=== PATIENT | female | born 1970 | race Caucasian/White ===

== ENCOUNTER 2016-03-27 18:29 | Emergency (ER) | payer OTHER ==
[2016-03-27 18:51] VITALS: BP 133/90
[2016-03-27] MEDS ORDERED: Ketorolac INJ* 30 MG/ML 1 ML VIAL IM ONE (19:54)
--- NOTE | 2016-03-27 20:00 | ED ---
Lower Extremity - HPI Summary HPI Summary: The patient is a 46 year old female that presents to the ED with complaint of right knee and ankle pain after tripping on toy left on floor by child falling forward onto right knee and twisting right ankle at 5 PM tonight. Complains of severe pain worse with movement of RLE and weight bearing. Denies head injury, neck or back pain, chest pain, shortness of breath, abdominal pain, nausea, vomiting, gross hematuria, paresthesias. History of HTN, HLP, DM, COPD, asthma, Breast CA, migraines, seizures. S/P appendectomy. FH CAD, HTN. SH: Current smoker and occasional ETOH. No IVDU. Lives with family. Indicates need to drive home. Declines narcotic analgesic. - History of Current Complaint Chief Complaint: EDExtremityLower Stated Complaint: FALL/RIGHT KNEE INJURY Time Seen by Provider: 03/27/16 19:05 Hx Last Menstrual Period: 12/30/14 Pain Intensity: 8 - Allergies/Home Medications Allergies/Adverse Reactions: Allergies Allergy/AdvReac Type Severity Reaction Status Date / Time Levofloxacin [From Levaquin] Allergy Severe Anaphylatic Verified 07/24/15 16:39 Shock Moxifloxacin [From Avelox] Allergy Intermediate See Comment Verified 07/24/15 16 :39 Quinolones Allergy Anaphylatic Verified 07/24/15 16:39 Shock PMH/Surg Hx/FS Hx/Imm Hx Endocrine/Hematology History: Reports: Hx Diabetes - pt does not take medication and does not know what type she has Denies: Hx Thyroid Disease Cardiovascular History: Reports: Hx Hypercholesterolemia, Hx Hypertension Denies: Hx Congestive Heart Failure, Hx Pacemaker/ICD Respiratory History: Reports: Hx Asthma, Hx Chronic Obstructive Pulmonary Disease (COPD) GI History: Reports: Other GI Disorders - DX WITH ENDOMETRIOSIS Denies: Hx Ulcer History: Reports: Hx Kidney Stones Denies: Hx Renal Disease Musculoskeletal History: Reports: Other Musculoskeletal History - DEGENERATIVE DISK DISEASE Sensory History: Reports: Hx Contacts or Glasses Denies: Hx Hearing Aid Opthamlomology History: Reports: Hx Contacts or Glasses Neurological History: Reports: Hx Migraine, Hx Seizures - topamax ....no seizures in years, Other Neuro Impairments/Disorders - MIGRAINES, EPILEPSY Psychiatric History: Reports: Hx Anxiety, Hx Depression Denies: Hx Panic Disorder - Surgical History Surgery Procedure, Year, and Place: APPENDIX IN 2000; (1) C-SECT IN 2005. BILAT BREAST BIOPSIES 2005,2006 Infectious Disease History: No Infectious Disease History: Denies: Hx Clostridium Difficile, Hx Hepatitis, Hx Human Immunodeficiency Virus (HIV), Hx of Known/Suspected MRSA, Hx Shingles, Hx Tuberculosis, Hx Known/ Suspected VRE, Hx Known/Suspected VRSA, History Other Infectious Disease, Traveled Outside the [place] in Last 30 Days - Family History Known Family History: Positive: Cardiac Disease, Hypertension - Social History Alcohol Use: Occasionally Substance Use Type: Reports: None Hx Tobacco Use: Yes Smoking Status (MU): Light Every Day Tobacco Smoker Type: Cigarettes Amount Used/How Often: 1-1 1/2 ppd Length of Time of Smoking/Using Tobacco: 25 yrs Have You Smoked in the Last Year: Yes Review of Systems Constitutional: Negative Cardiovascular: Negative Respiratory: Negative Gastrointestinal: Negative Genitourinary: Negative Positive: Arthralgia, Decreased ROM, Edema Skin: Negative Neurological: Negative All Other Systems Reviewed And Are Negative: Yes Physical Exam Triage Information Reviewed: Yes Vital Signs On Initial Exam: Initial Vitals Temp Pulse Resp BP Pulse Ox 99.7 F 102 17 133/90 97 03/27/16 18:47 03/27/16 18:47 03/27/16 18:47 03/27/16 18:47 03/27/16 18:47 Vital Signs Reviewed: Yes Appearance: Positive: Well-Appearing, Well-Nourished, Pain Distress - moderate pain Skin: Positive: Warm, Skin Color Reflects Adequate Perfusion, Dry Head/Face: Positive: Normal Head/Face Inspection Eyes: Positive: Other: - Anicteric ENT: Positive: Hearing grossly normal Neck: Positive: Supple Respiratory/Lung Sounds: Positive: Other - Normal respirations Cardiovascular: Positive: RRR - DP pulse 2+. Negative: Leg Edema Left, Leg Edema Right Musculoskeletal: Positive: Limited @ - Decreased AROM right knee; decreased right ankle eversion, Pain @ - moderate tenderness right patella with 1+ edema and faint ecchymosis; mild tenderness right lateral malleolus 1+ edema without ecchymosis.. Negative: Edema Left, Edema Right Neurological: Positive: Normal, Sensory/Motor Intact, Reflexes Intact - Achilles 2+, NV Bundle Intact Distally Psychiatric: Positive: Normal AVPU Assessment: Alert Diagnostics - Vital Signs Vital Signs Temp Pulse Resp BP Pulse Ox 03/27/16 18:47 99.7 F 102 17 133/90 97 - Laboratory Lab Statement: Any lab studies that have been ordered have been reviewed, and results considered in the medical decision making process. Lower Extremity Course/Dx - Course Assessment/Plan: Xray knee without fracture. Xray ankle with fragmentation likely old fracture vs ossicle. Clinical impression of knee contusion and ankle sprain. Declines narcotic. Advised to continue to naproxen, RICE. Places in knee moses wrap and ankle splint. Given referral to Orthopedist. - Diagnoses Provider Diagnoses: Knee contusion, Ankle sprain Discharge - Discharge Plan Condition: Stable Disposition: HOME Patient Education Materials: Ankle Sprain (ED), Contusion in Adults (ED) Referrals: Mary Aguilar MD [Primary Care Provider] - Tony Mas MD [Medical Doctor] -
--- NOTE | 2016-03-27 20:59 | RAD ---
Indication: Right patellar tenderness. 4 views of the right knee demonstrates no fracture or dislocation. No other bone or joint abnormality is identified. IMPRESSION: No fracture of the right knee is noted.
--- NOTE | 2016-03-27 21:00 | RAD ---
Indication: Right ankle pain. 3 views of the right ankle demonstrates old ununited fracture of the distal fibula or an accessory ossicle. No recent fracture is noted. Soft tissue swelling is noted laterally. IMPRESSION: Fragmentation of the distal fibula likely due to ununited old fracture or accessory ossicle.
== END 2016-03-27 21:55 | disposition home or self-care (01) ==
LOC: ED 18:29
DX: S80.01XA Contusion of right knee, initial encounter (principal); S93.491A Sprain of other ligament of right ankle, initial encounter; M25.571 Pain in right ankle and joints of right foot; M25.561 Pain in right knee; F17.210 Nicotine dependence, cigarettes, uncomplicated; W18.09XA Striking against other object with subsequent fall, initial encounter; Y93.9 Activity, unspecified; Y92.9 Unspecified place or not applicable; Y99.9 Unspecified external cause status; Z86.79 Personal history of other diseases of the circulatory system
CPT/HCPCS: 96372; 99282; J1885

== ENCOUNTER 2016-09-05 10:01 | Emergency (ER) | payer OTHER ==
[2016-09-05] MEDS ORDERED: Amoxicillin/Clavulanate TAB* 875 MG PO ONE (11:09)
[2016-09-05] MEDS ORDERED: Ibuprofen TAB* 800 MG PO ONE (11:09)
--- NOTE | 2016-09-05 11:11 | ED ---
Upper Extremity Pain - HPI Summary HPI Summary: Pt here w/ Rt index finger cat bite last night. Cat was stuck in dresser drawer and pt attempted to remove cat - cat bit finger and held on for a minute. Pt reports bleeding at that time. Sore, swollen and stiff today. Pt is UTD w/ imms as is her cat. Denies fever, chills, N/V/D. She tried acetaminophen w/o much relief prior to arrival. Concerned about infection. Has already complete paperwork for animal bite. Denies numbness, tingling, weakness. - History of Current Complaint Chief Complaint: EDAnimalBite Stated Complaint: CAT BITE Time Seen by Provider: 09/05/16 10:56 Hx Obtained From: Patient Hx Last Menstrual Period: 12/30/14 - Allergies/Home Medications Allergies/Adverse Reactions: Allergies Allergy/AdvReac Type Severity Reaction Status Date / Time Levofloxacin [From Levaquin] Allergy Severe Anaphylatic Verified 07/13/16 11:29 Shock Amoxicillin [From Augmentin] Allergy Intermediate Hives Verified 09/05/16 11:10 Clavulanic Acid Allergy Intermediate Hives Verified 09/05/16 11:10 [From Augmentin] Moxifloxacin [From Avelox] Allergy Intermediate See Comment Verified 07/13/16 11 :29 Quinolones Allergy Anaphylatic Verified 07/13/16 11:29 Shock PMH/Surg Hx/FS Hx/Imm Hx Previously Healthy: Yes Endocrine/Hematology History: Reports: Hx Diabetes - pt does not take medication and does not know what type she has Denies: Hx Thyroid Disease, Autoimmune Disease Cardiovascular History: Reports: Hx Hypercholesterolemia Denies: Hx Congestive Heart Failure, Hx Hypertension, Hx Pacemaker/ICD Respiratory History: Reports: Hx Asthma, Hx Chronic Obstructive Pulmonary Disease (COPD) GI History: Reports: Other GI Disorders - DX WITH ENDOMETRIOSIS Denies: Hx Ulcer History: Reports: Hx Kidney Stones Denies: Hx Renal Disease Musculoskeletal History: Reports: Other Musculoskeletal History - DEGENERATIVE DISc DISEASE; tears in Lt knee Sensory History: Reports: Hx Contacts or Glasses Denies: Hx Hearing Aid Opthamlomology History: Reports: Hx Contacts or Glasses Neurological History: Reports: Hx Migraine, Hx Seizures - topamax ....no seizures in years, Other Neuro Impairments/Disorders - MIGRAINES, EPILEPSY Psychiatric History: Reports: Hx Anxiety, Hx Depression Denies: Hx Panic Disorder - Cancer History Cancer Type, Location and Year: PRE CANCEROUS CELLS BILATERAL BREAST REMOVED - Surgical History Surgery Procedure, Year, and Place: APPENDIX IN 2000; (1) C-SECT IN 2005. BILAT BREAST BIOPSIES 2005,2006 Infectious Disease History: No Infectious Disease History: Denies: Hx Clostridium Difficile, Hx Hepatitis, Hx Human Immunodeficiency Virus (HIV), Hx of Known/Suspected MRSA, Hx Shingles, Hx Tuberculosis, Hx Known/ Suspected VRE, Hx Known/Suspected VRSA, History Other Infectious Disease, Traveled Outside the [place] in Last 30 Days - Family History Known Family History: Positive: Cardiac Disease, Hypertension - Social History Lives: With Family Alcohol Use: None Hx Substance Use: No Substance Use Type: Reports: None Hx Tobacco Use: Yes Smoking Status (MU): Current Every Day Smoker Type: Cigarettes Amount Used/How Often: 1-1 1/2 ppd Length of Time of Smoking/Using Tobacco: 25 yrs Have You Smoked in the Last Year: Yes Review of Systems Constitutional: Negative Negative: Fever, Chills Negative: Chest Pain Negative: Shortness Of Breath Negative: Vomiting, Nausea Positive: no symptoms reported Musculoskeletal: Other - see HPI Skin: Other - see HPI Neurological: Negative Psychological: Normal All Other Systems Reviewed And Are Negative: Yes Physical Exam Triage Information Reviewed: Yes Vital Signs On Initial Exam: Initial Vitals Temp Pulse Resp BP Pulse Ox 97.1 F 74 20 133/95 98 09/05/16 10:04 09/05/16 10:04 09/05/16 10:04 09/05/16 10:04 09/05/16 10:04 Vital Signs Reviewed: Yes Appearance: Positive: Well-Appearing, No Pain Distress, Well-Nourished Skin: Positive: Warm, Dry - Rt index finger w/ mild erythema, edema compared to Lt index finger - limited FROM (flexion) d/t pt reporting stiffness; multiple puncture wounds to Rt index - closed/scabbed - no drainage, no streaking Head/Face: Positive: Normal Head/Face Inspection Eyes: Positive: EOMI, Conjunctiva Clear ENT: Positive: Hearing grossly normal Respiratory/Lung Sounds: Positive: Breath Sounds Present Cardiovascular: Positive: Pulses are Symmetrical in both Upper and Lower Extremities Musculoskeletal: Positive: Pain @ - see SKIN above - Rt raiza finger TTP Neurological: Positive: Normal, Sensory/Motor Intact, Alert, Oriented to Person Place, Time, CN Intact II-III Psychiatric: Positive: Normal Diagnostics - Vital Signs Vital Signs Temp Pulse Resp BP Pulse Ox 09/05/16 10:07 97.7 F 77 20 133/95 98 09/05/16 10:04 97.1 F 74 20 133/95 98 - Laboratory Lab Statement: Any lab studies that have been ordered have been reviewed, and results considered in the medical decision making process. Course/Dx - Course Course Of Treatment: Cat bite to Rt index finger from last night. Wounds have closed despite warm soapy soak today - unable to reopen wounds for irrigation. Advised daily soaks, anbx, NSAID's and close f/u w/ PCP. Pt is allergic to augmentin so alternative was chosen for her. Reviewed danger s/sx of when to return to ED. - Diagnoses Provider Diagnoses: Cat bite of index finger Discharge - Discharge Plan Condition: Stable Disposition: HOME Prescriptions: Metronidazole [Flagyl 500 MG TAB] 500 mg PO TID #30 tab Sulfamethox/Trimethoprim DS* [Bactrim DS 800/160 TAB*] 1 tab PO BID #20 tab Patient Education Materials: Animal Bite (ED) Referrals: Mary Aguilar MD [Primary Care Provider] - Additional Instructions: Soak finger 3-5 x day in warm epsom salt water alternating with soap soaks Rest, elevate - may use warm compress or ice for pain, swelling Continue acetaminophen/ibuprofen for pain Complete antibiotics - followup with PCP later this week for recheck *if you develop fever, chills, streaking into hand, purulent drainage with worsening of swelling/pain, seek medical attention sooner than later
[2016-09-05] MEDS ORDERED: metroNIDAZOLE TAB* 250 MG PO ONE (11:14)
[2016-09-05] MEDS ORDERED: Sulfamethox/Trimethoprim DS 800/160* TAB PO ONE (11:14)
[2016-09-05 12:23] VITALS: BP 130/87
== END 2016-09-05 12:21 | disposition home or self-care (01) ==
LOC: ED 10:01
DX: S61.258A Open bite of other finger without damage to nail, initial encounter (principal); W55.01XA Bitten by cat, initial encounter; Y93.9 Activity, unspecified
CPT/HCPCS: 99283; A9270-GY

== ENCOUNTER 2016-09-07 21:00 | Emergency (ER) | payer OTHER ==
--- NOTE | 2016-09-07 22:05 | RAD ---
Indication: Left knee injury and fall. 4 views of left knee demonstrates no fracture or dislocation. No joint effusion is identified. IMPRESSION: No fracture of the left knee is noted.
[2016-09-07] MEDS ORDERED: Ketorolac INJ* 60 MG/2 ML VIAL IM ONE (22:16)
--- NOTE | 2016-09-07 22:23 | ED ---
Lower Extremity - HPI Summary HPI Summary: Patient has a known left knee meniscus tear and partial ACL tear that occurred 3 months ago. She has been attending PT and was making progress until today when her knee suddenly became swollen and she was unable to bear weight on the leg. She has swelling around the knee cap without calf pain, redness or warmth. - History of Current Complaint Chief Complaint: EDExtremityLower Stated Complaint: LEFT KNEE PAIN Time Seen by Provider: 09/07/16 21:04 Hx Obtained From: Patient Hx Last Menstrual Period: 12/30/14 Mechanism Of Injury: Unknown Onset of Pain: Immediate Onset/Duration: Hours Severity Initially: Severe Severity Currently: Severe Timing: Constant Location: Is Discrete @ - left knee Character Of Pain: Sharp, Aching, Stiffness Associated Signs And Symptoms: Positive: Swelling, Knee Pain Aggravating Factor(s): Standing, Movement Alleviating Factor(s): Nothing Able to Bear Weight: No - Allergies/Home Medications Allergies/Adverse Reactions: Allergies Allergy/AdvReac Type Severity Reaction Status Date / Time Levofloxacin [From Levaquin] Allergy Severe Anaphylatic Verified 07/13/16 11:29 Shock Amoxicillin [From Augmentin] Allergy Intermediate Hives Verified 09/05/16 11:10 Clavulanic Acid Allergy Intermediate Hives Verified 09/05/16 11:10 [From Augmentin] Moxifloxacin [From Avelox] Allergy Intermediate See Comment Verified 07/13/16 11 :29 Quinolones Allergy Anaphylatic Verified 07/13/16 11:29 Shock PMH/Surg Hx/FS Hx/Imm Hx Endocrine/Hematology History: Reports: Hx Diabetes - pt does not take medication and does not know what type she has Denies: Hx Thyroid Disease Cardiovascular History: Reports: Hx Hypercholesterolemia Denies: Hx Congestive Heart Failure, Hx Hypertension, Hx Pacemaker/ICD Respiratory History: Reports: Hx Asthma, Hx Chronic Obstructive Pulmonary Disease (COPD) GI History: Reports: Other GI Disorders - DX WITH ENDOMETRIOSIS Denies: Hx Ulcer History: Reports: Hx Kidney Stones Denies: Hx Renal Disease Musculoskeletal History: Reports: Other Musculoskeletal History - DDD; left knee partial ACL tear; left knee meniscus tear Sensory History: Reports: Hx Contacts or Glasses Denies: Hx Hearing Aid Opthamlomology History: Reports: Hx Contacts or Glasses Neurological History: Reports: Hx Migraine, Hx Seizures - topamax ....no seizures in years, Other Neuro Impairments/Disorders - MIGRAINES, EPILEPSY Psychiatric History: Reports: Hx Anxiety, Hx Depression Denies: Hx Panic Disorder - Cancer History Cancer Type, Location and Year: PRE CANCEROUS CELLS BILATERAL BREAST REMOVED - Surgical History Surgery Procedure, Year, and Place: APPENDIX IN 2000; (1) C-SECT IN 2005. BILAT BREAST BIOPSIES 2005,2006 Infectious Disease History: Denies: Hx Clostridium Difficile, Hx Hepatitis, Hx Human Immunodeficiency Virus (HIV), Hx of Known/Suspected MRSA, Hx Shingles, Hx Tuberculosis, Hx Known/ Suspected VRE, Hx Known/Suspected VRSA, History Other Infectious Disease, Traveled Outside the [place] in Last 30 Days - Family History Known Family History: Positive: Cardiac Disease, Hypertension - Social History Occupation: Unemployed Lives: With Family Alcohol Use: None Substance Use Type: Reports: None Hx Tobacco Use: Yes Smoking Status (MU): Light Every Day Tobacco Smoker Type: Cigarettes Amount Used/How Often: 1-1 1/2 ppd Length of Time of Smoking/Using Tobacco: 25 yrs Have You Smoked in the Last Year: Yes Cessation Counseling: Patient Advised to Stop Review of Systems Negative: Fever, Chills Positive: Myalgia, Decreased ROM, Edema Negative: Bruising Negative: Paresthesia, Numbness All Other Systems Reviewed And Are Negative: Yes Physical Exam Triage Information Reviewed: Yes Vital Signs Reviewed: Yes Appearance: Positive: Well-Appearing, Pain Distress, Obese Skin: Positive: Warm, Skin Color Reflects Adequate Perfusion, Dry, Soft Head/Face: Positive: Normal Head/Face Inspection Eyes: Positive: EOMI, JOSEPH, Conjunctiva Clear ENT: Positive: Hearing grossly normal Respiratory/Lung Sounds: Positive: Breath Sounds Present Cardiovascular: Positive: RRR Musculoskeletal: Positive: Limited @ - extesion to 30; flexion to 50 with pain, Pain @ - TTP med/lat joint lines; TTP popliteal fossa with +patellar apprehension, Edema Left Neurological: Positive: Sensory/Motor Intact, Alert, Oriented to Person Place, Time, NV Bundle Intact Distally, Unable to Assess Gait Psychiatric: Positive: Affect/Mood Appropriate AVPU Assessment: Alert Diagnostics - Laboratory Lab Statement: Any lab studies that have been ordered have been reviewed, and results considered in the medical decision making process. - Radiology No standard instances Xray Interpretation: No Acute Changes Radiology Interpretation Completed By: Radiologist Lower Extremity Course/Dx - Diagnoses Differential Diagnosis/HQI/PQRI: Positive: Arthritis, Bursitis, Cellulitis, Contusion, Dislocation, DVT, Fracture (Closed), Sprain, Strain Provider Diagnoses: Left knee pain Discharge - Discharge Plan Condition: Stable Disposition: HOME Patient Education Materials: Knee Pain (ED), RICE Therapy (ED) Referrals: Warren Ramos MD [Medical Doctor] - Mary Aguilar MD [Primary Care Provider] - Additional Instructions: Please call Dr. Ramos's office in the morning for a follow-up appointment to discuss treatment options for your knee. Elevate your knee above your heart, wear your Evens bandage, ice and rest your knee to allow the swelling to decrease. Use the walker to keep weight off your knee until your pain improves.
[2016-09-07 23:20] VITALS: BP 152/70
== END 2016-09-07 23:00 | disposition home or self-care (01) ==
LOC: ED 21:00
DX: M25.562 Pain in left knee (principal); R60.0 Localized edema; F17.210 Nicotine dependence, cigarettes, uncomplicated
CPT/HCPCS: 96372; 99281; J1885

== ENCOUNTER 2016-10-19 22:33 | Emergency (ER) | payer OTHER ==
[2016-10-19 22:47] VITALS: BP 141/87
[2016-10-20] MEDS ORDERED: predniSONE TAB* 20 MG PO ONE (00:43)
[2016-10-20] MEDS ORDERED: DOXYcycline CAP(*) 100 MG PO ONE (00:44)
--- NOTE | 2016-10-20 00:48 | ED ---
Respiratory - HPI Summary HPI Summary: 46F presents with productive cough, sinus congestion for 4 days. has history of COPD but is not taking medication. She denies any chest pain. She admits to SOB when she coughs. She admits to sinus congestion and post nasal drip. She admits to itchy watery eyes and ear fullness. She is on allergy medication. She has not used her nebulizer in many weeks. she is a smoker. - History of Current Complaint Chief Complaint: EDUpperRespComplaint Stated Complaint: EYE BURING, CHEST AND BACK PAIN, SORE THROAT Time Seen by Provider: 10/20/16 00:13 Pain Intensity: 0 - Allergy/Home Medications Allergies/Adverse Reactions: Allergies Allergy/AdvReac Type Severity Reaction Status Date / Time Levofloxacin [From Levaquin] Allergy Severe Anaphylatic Verified 10/20/16 00:19 Shock Amoxicillin [From Augmentin] Allergy Intermediate Hives Verified 10/20/16 00:19 Clavulanic Acid Allergy Intermediate Hives Verified 10/20/16 00:19 [From Augmentin] Moxifloxacin [From Avelox] Allergy Intermediate See Comment Verified 10/20/16 00 :19 Quinolones Allergy Anaphylatic Verified 10/20/16 00:19 Shock PMH/Surg Hx/FS Hx/Imm Hx Endocrine/Hematology History: Reports: Hx Diabetes - pt does not take medication and does not know what type she has Denies: Hx Thyroid Disease Cardiovascular History: Reports: Hx Hypercholesterolemia Denies: Hx Congestive Heart Failure, Hx Hypertension, Hx Pacemaker/ICD Respiratory History: Reports: Hx Asthma, Hx Chronic Obstructive Pulmonary Disease (COPD) GI History: Reports: Other GI Disorders - DX WITH ENDOMETRIOSIS Denies: Hx Ulcer History: Reports: Hx Kidney Stones Denies: Hx Renal Disease Musculoskeletal History: Reports: Other Musculoskeletal History - DDD; left knee partial ACL tear; left knee meniscus tear Sensory History: Reports: Hx Contacts or Glasses Denies: Hx Hearing Aid Opthamlomology History: Reports: Hx Contacts or Glasses Neurological History: Reports: Hx Migraine, Hx Seizures - topamax ....no seizures in years, Other Neuro Impairments/Disorders - MIGRAINES, EPILEPSY Psychiatric History: Reports: Hx Anxiety, Hx Depression Denies: Hx Panic Disorder - Cancer History Cancer Type, Location and Year: PRE CANCEROUS CELLS BILATERAL BREAST REMOVED - Surgical History Surgery Procedure, Year, and Place: APPENDIX IN 2000; (1) C-SECT IN 2005. BILAT BREAST BIOPSIES 2005,2006 Infectious Disease History: No Infectious Disease History: Denies: Hx Clostridium Difficile, Hx Hepatitis, Hx Human Immunodeficiency Virus (HIV), Hx of Known/Suspected MRSA, Hx Shingles, Hx Tuberculosis, Hx Known/ Suspected VRE, Hx Known/Suspected VRSA, History Other Infectious Disease, Traveled Outside the [place] in Last 30 Days - Family History Known Family History: Positive: Cardiac Disease, Hypertension - Social History Alcohol Use: None Substance Use Type: Reports: None Hx Tobacco Use: Yes Smoking Status (MU): Light Every Day Tobacco Smoker Type: Cigarettes Amount Used/How Often: 1-1 1/2 ppd Length of Time of Smoking/Using Tobacco: 25 yrs Have You Smoked in the Last Year: Yes Review of Systems Negative: Fever Positive: Nasal Discharge Negative: Chest Pain Positive: Shortness Of Breath, Cough Negative: Abdominal Pain All Other Systems Reviewed And Are Negative: Yes Physical Exam Triage Information Reviewed: Yes Vital Signs On Initial Exam: Initial Vitals Temp Pulse Resp BP Pulse Ox 98.5 F 97 16 141/87 97 10/19/16 22:45 10/19/16 22:45 10/19/16 22:45 10/19/16 22:45 10/19/16 22:45 Vital Signs Reviewed: Yes Appearance: Positive: Well-Appearing Skin: Positive: Warm, Dry Head/Face: Positive: Normal Head/Face Inspection Eyes: Positive: Normal, Conjunctiva Inflammed - allergic appearing ENT: Positive: Pharynx normal, Nasal congestion, TMs normal Respiratory/Lung Sounds: Positive: Breath Sounds Present, Decreased Breath Sounds, Other - pos egophony Cardiovascular: Positive: Normal, RRR Abdomen Description: Positive: Nontender, Soft Bowel Sounds: Positive: Present Diagnostics - Vital Signs Vital Signs Temp Pulse Resp BP Pulse Ox 10/20/16 00:17 97.2 F 97 16 141/87 97 10/19/16 22:45 98.5 F 97 16 141/87 97 - Laboratory Lab Statement: Any lab studies that have been ordered have been reviewed, and results considered in the medical decision making process. Disposition - Course Course Of Treatment: 46F presents with productive cough, sinus congestion for 4 days. has history of COPD but is not taking medication. She denies any chest pain. She admits to SOB when she coughs. She admits to sinus congestion and post nasal drip. She admits to itchy watery eyes and ear fullness. She is on allergy medication. She has not used her nebulizer in many weeks. she is a smoker. on exam conjunctive red like allergic conjunctivities told to use visine and flonase. refused xray but did hear area of consolidation with egophony. patient refused any labs only wants treatment. discussed says verenice not work for her so will use doxcycline and prednisone. told to restart copd medication and follow up with primary. patient understands and agrees with plan. - Differential Dx - Cardiopulmonary Differential Diagnoses - Cardiopulmonary: Bronchitis, Exacerbation Of COPD, Lower Resp Infection - Diagnoses Provider Diagnoses: COPD exacerbation, Pneumonia Discharge - Discharge Plan Condition: Good Disposition: HOME Prescriptions: DOXYcycline CAP(*) [DOXYcycline 100MG CAP(*)] 100 mg PO BID #13 cap Fluticasone NASAL SPRAY 50MCG* [Flonase NASAL SPRAY 50MCG*] 1 spray BOTH NARES DAILY #1 btl predniSONE TAB* [Deltasone TAB*] 40 mg PO DAILY #8 tab Patient Education Materials: COPD (Chronic Obstructive Pulmonary Disease) (ED) Referrals: Mary Aguilar MD [Primary Care Provider] - Additional Instructions: Take doxycycline twice a day for 7 days, take with food and avoid sun exposure Take steroid once a day for 4 more days starting tomorrow 5 days Use flonase one spray each nostril for nasal congestion and eye irritation Use inhaler for SOB as needed every 6 hours Take Tylenol or ibuprofen for pain every 6 hours Follow up with primary within 5 days Return to ED if develop severe shortness of breath, worsening chest pain, or any new or worsening symptoms
== END 2016-10-20 01:09 | disposition home or self-care (01) ==
LOC: ED 22:33
DX: J44.1 Chronic obstructive pulmonary disease with (acute) exacerbation (principal); R06.02 Shortness of breath; R05 Cough; F17.210 Nicotine dependence, cigarettes, uncomplicated; J18.9 Pneumonia, unspecified organism
CPT/HCPCS: 99282; A9270-GY; J7512

== ENCOUNTER 2016-11-26 13:11 | Emergency (ER) | payer OTHER ==
--- NOTE | 2016-11-26 15:21 | RAD ---
Indication: Fell and hit front of head. Loss of consciousness. Headache. Comparison: No relevant prior exams available on the [facility] PACS for comparison. Technique: Noncontrast CT vertex of skull through foramen magnum. Report: The sulci, ventricles, and basal cisterns are normal for age. Jules matter white matter differentiation is preserved without evidence for edema. No intra or extra axial hemorrhage is detected. Unremarkable orbital contents. Negative for calvarial or skull base fracture. Negative for scalp hematoma. The visualized paranasal sinuses and mastoid air spaces are clear. IMPRESSION: No evidence for traumatic brain injury or acute intracranial process. Negative exam.
--- NOTE | 2016-11-26 15:45 | ED ---
Head Injury - HPI Summary HPI Summary: Patient presents to the ED with CC of head trauma sustained 3 days ago. She states she fell, it was unwitnessed, but she states she did not have LOC. She notes to dizziness, blurry vision, double vision, nausea, fatigue and FERREIRA. FERREIRA improves with ibuprofen, worse with nothing. She states she has been sleeping a lot and feels "off." She is unaware of how she hit her head and doesn't recall the events surrounding the trauma. She is also unsure where she hit her head, and continues to state "I'm just confused." GCS 15 on arrival. FERREIRA is not worst of life, but 8/10, constant and described as a throbbing in the frontal area. - History Of Current Complaint Chief Complaint: EDHeadInjury Stated Complaint: HIT HEAD Time Seen by Provider: 11/26/16 14:39 Hx Obtained From: Patient Hx Last Menstrual Period: 12/30/14 Mechanism Of Injury: Blunt Trauma Onset/Duration: Started Days Ago Onset of Pain: Days Severity Currently: Moderate Severity Initially: Moderate Pain Intensity: 7 Pain Scale Used: 0-10 Numeric Location of Head Injury: Frontal Character: Pressure Aggravating Factor(s): Movement Alleviating Factor(s): Rest Associated Signs And Symptoms: LOC Duration Unknown, Confusion, Memory Loss, Nausea, Headache, Visual Changes - Risk Factors SDH Risk Factor: Negative - Allergies/Home Medications Allergies/Adverse Reactions: Allergies Allergy/AdvReac Type Severity Reaction Status Date / Time Levofloxacin [From Levaquin] Allergy Severe Anaphylatic Verified 10/20/16 00:19 Shock Amoxicillin [From Augmentin] Allergy Intermediate Hives Verified 10/20/16 00:19 Clavulanic Acid Allergy Intermediate Hives Verified 10/20/16 00:19 [From Augmentin] Moxifloxacin [From Avelox] Allergy Intermediate See Comment Verified 10/20/16 00 :19 Quinolones Allergy Anaphylatic Verified 10/20/16 00:19 Shock PMH/Surg Hx/FS Hx/Imm Hx Previously Healthy: Yes Endocrine/Hematology History: Reports: Hx Diabetes - pt does not take medication and does not know what type she has Denies: Hx Anticoagulant Therapy, Hx Thyroid Disease Cardiovascular History: Reports: Hx Hypercholesterolemia Denies: Hx Congestive Heart Failure, Hx Hypertension, Hx Pacemaker/ICD Respiratory History: Reports: Hx Asthma, Hx Chronic Obstructive Pulmonary Disease (COPD) GI History: Reports: Other GI Disorders - DX WITH ENDOMETRIOSIS Denies: Hx Ulcer History: Reports: Hx Kidney Stones Denies: Hx Renal Disease Musculoskeletal History: Reports: Other Musculoskeletal History - DDD; left knee partial ACL tear; left knee meniscus tear Sensory History: Reports: Hx Contacts or Glasses Denies: Hx Hearing Aid Opthamlomology History: Reports: Hx Contacts or Glasses Neurological History: Reports: Hx Migraine, Hx Seizures - topamax ....no seizures in years, Other Neuro Impairments/Disorders - MIGRAINES, EPILEPSY Psychiatric History: Reports: Hx Anxiety, Hx Depression Denies: Hx Panic Disorder - Cancer History Cancer Type, Location and Year: PRE CANCEROUS CELLS BILATERAL BREAST REMOVED - Surgical History Surgery Procedure, Year, and Place: APPENDIX IN 2000; (1) C-SECT IN 2005. BILAT BREAST BIOPSIES 2005,2006 - Immunization History Hx Pertussis Vaccination: No Immunizations Up to Date: Unable to Obtain/Confirm Infectious Disease History: No Infectious Disease History: Denies: Hx Clostridium Difficile, Hx Hepatitis, Hx Human Immunodeficiency Virus (HIV), Hx of Known/Suspected MRSA, Hx Shingles, Hx Tuberculosis, Hx Known/ Suspected VRE, Hx Known/Suspected VRSA, History Other Infectious Disease, Traveled Outside the [place] in Last 30 Days - Family History Known Family History: Positive: Cardiac Disease, Hypertension - Social History Occupation: Employed Part-time Lives: With Family Alcohol Use: None Hx Substance Use: No Substance Use Type: Reports: None Hx Tobacco Use: Yes Smoking Status (MU): Light Every Day Tobacco Smoker Type: Cigarettes Amount Used/How Often: 1-1 1/2 ppd Length of Time of Smoking/Using Tobacco: 25 yrs Have You Smoked in the Last Year: Yes Review of Systems Constitutional: Negative Negative: Fever, Chills, Fatigue Positive: Photophobia, Blurred Vision Negative: Ear Ache, Nasal Discharge Negative: Palpitations, Chest Pain Negative: Shortness Of Breath, Cough Positive: Nausea Positive: no symptoms reported, see HPI Negative: Arthralgia, Myalgia Positive: Headache. Negative: Weakness, Numbness Psychological: Normal All Other Systems Reviewed And Are Negative: Yes Physical Exam Triage Information Reviewed: Yes Vital Signs On Initial Exam: Initial Vitals Temp Pulse Resp BP Pulse Ox 98.6 F 89 15 129/86 97 11/26/16 13:12 11/26/16 13:12 11/26/16 13:12 11/26/16 13:12 11/26/16 13:12 Vital Signs Reviewed: Yes Appearance: Positive: Well-Appearing, Well-Nourished Skin: Positive: Warm, Skin Color Reflects Adequate Perfusion Head/Face: Positive: Normal Head/Face Inspection. Negative: Temporal Artery Tenderness, TMJ Tenderness, Scalp, Cephalohematoma Eyes: Positive: EOMI, JOSEPH, Conjunctiva Clear Neck: Positive: Supple, No Lymphadenopathy Respiratory/Lung Sounds: Positive: Clear to Auscultation, Breath Sounds Present Cardiovascular: Positive: Pulses are Symmetrical in both Upper and Lower Extremities Musculoskeletal: Positive: Normal, Strength/ROM Intact Neurological: Positive: Speech Normal Psychiatric: Positive: Normal AVPU Assessment: Alert - [place] Coma Scale Coma Scale Total: 15 Diagnostics - Vital Signs Vital Signs Temp Pulse Resp BP Pulse Ox 11/26/16 13:12 98.6 F 89 15 129/86 97 - Laboratory Lab Statement: Any lab studies that have been ordered have been reviewed, and results considered in the medical decision making process. Head Injury Course/Dx Course Of Treatment: GCS score >15 at arrival to ED. No suspected open or depressed skull fx, no sign of basal skull fx, no hemotympanum, raccoon eyes, Battles sign, CSF hermnan-/rhinorrhea, no emesis after injury or currently, but notes to mild nausea, no amnesia greater than 30 minutes prior to trauma, and mechanism of injury was minimal impact. Complete neuro exam completed and WNL. Normal head/face inspection with no cephalohematoma. Reflexes intact. EOMI, JOSEPH, visual acuity intact. No obvious confusion or memory loss per patient and family. MMSE OK. GCS 15. Patient oriented to person, place and date. No obvious deformity or signs of trauma. Finger to nose, heel to toe OK. Heel to holden normal. Speech normal, facial symmetry, normal gait, CN II-III intact. Patient denies LOC. ROM, strength, reflexes in upper and lower extremity intact , sensation intact. Patient discharged with return precautions and post- concussive symptoms explained to patient. Patient agrees to follow up and return if needed. - Diagnoses Differential Diagnosis/HQI/PQRI: Cerebral Contusion, Concussion With LOC, Concussion Without LOC, Contusion Provider Diagnoses: Concussion without loss of consciousness Discharge - Discharge Plan Condition: Stable Disposition: HOME Patient Education Materials: Concussion (ED) Forms: *Work Release Referrals: [facility] [Provider Group] [facility] [Provider Group] Mary Aguilar MD [Primary Care Provider] - Additional Instructions: Brain rest: This includes avoiding TV, phone use, reading, writing The more sleep and eye closure, the better Dark rooms Note for work until Sunday If symptoms continue, you may always return here or follow up with your PCP
[2016-11-26 15:49] VITALS: BP 138/93
== END 2016-11-26 15:49 | disposition home or self-care (01) ==
LOC: ED 13:11
DX: S06.0X0A Concussion without loss of consciousness, initial encounter (principal); W19.XXXA Unspecified fall, initial encounter; Y92.9 Unspecified place or not applicable; E11.9 Type 2 diabetes mellitus without complications; E78.00 Pure hypercholesterolemia, unspecified; J44.9 Chronic obstructive pulmonary disease, unspecified; F17.210 Nicotine dependence, cigarettes, uncomplicated
CPT/HCPCS: 70450; 99282

== ENCOUNTER 2017-01-05 09:21 | Emergency (ER) | payer OTHER ==
[2017-01-05 09:41] VITALS: BP 135/76
--- NOTE | 2017-01-05 10:25 | RAD ---
Indication: RIGHT foot pain and swelling following dropping object on foot several days ago. Comparison: September 11, 2016 Technique: AP, lateral, and oblique views RIGHT foot. Report: Negative for fracture or articular malalignment. 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 Small plantar fascia origin bone spur. Mild nonfocal soft tissue swelling. IMPRESSION: Negative for fracture. Mild nonfocal soft tissue swelling.
--- NOTE | 2017-01-05 11:04 | ED ---
Complex/Multi-Sys Presentation - HPI Summary HPI Summary: 46 female presents to ED with complaints of nasal congestion, sore throat, coughing and chest congestion that have been ongoing for the past month. Patient states she has been trying to take mucinex and ibuprofen however has not had any relief. Patient denies hemoptysis. States cough is some times productive. Has had some difficulty breathing due to congestion. PMHX includes COPD. She has had bronchitis/pneumonia in that past and states it comes about twice a year. Denies taking other medications. No fever/chills, chest pain, nausea, edema or vomiting. Also of complaint is her right foot. States two days ago she had something fall on it and then her daughter fell on it yesterday. Pain has increased and it has been sore to walk on and touch. States pain is on top of foot. Denies notable swelling/bruising. Is able to bear weight. Denies numbness/tingling and any other injury. - History Of Current Complaint Chief Complaint: EDUpperRespComplaint Time Seen by Provider: 01/05/17 10:28 Hx Obtained From: Patient Onset/Duration: Sudden Onset, Lasting Weeks - 1 month URI, foot x 2 days, Still Present, Worse Since Timing: Constant Severity Currently: Mild Severity Initially: Moderate Location: Pain At: - top of right foot Character: Dull - aching foot pain, Throbbing - foot pain Aggravating Factor(s): walking, palpating right foot, laying down cough Alleviating Factor(s): mucinex, iburprofen, some relief Associated Signs And Symptoms: Positive: SOB, Cough, Wheezing. Negative: Palpitations, Edema, Nausea, Vomiting, Diarrhea, Abdominal Pain, Fever Related History: Similar Episode/Diagnosed As: - bronchitis/pneumonia in the past - Allergies/Home Medications Allergies/Adverse Reactions: Allergies Allergy/AdvReac Type Severity Reaction Status Date / Time Levofloxacin [From Levaquin] Allergy Severe Anaphylatic Verified 10/20/16 00:19 Shock Amoxicillin [From Augmentin] Allergy Intermediate Hives Verified 10/20/16 00:19 Clavulanic Acid Allergy Intermediate Hives Verified 10/20/16 00:19 [From Augmentin] Moxifloxacin [From Avelox] Allergy Intermediate See Comment Verified 10/20/16 00 :19 Quinolones Allergy Anaphylatic Verified 10/20/16 00:19 Shock PMH/Surg Hx/FS Hx/Imm Hx Endocrine/Hematology History: Reports: Hx Diabetes - pt does not take medication and does not know what type she has Denies: Hx Anticoagulant Therapy, Hx Thyroid Disease Cardiovascular History: Reports: Hx Hypercholesterolemia Denies: Hx Congestive Heart Failure, Hx Hypertension, Hx Pacemaker/ICD Respiratory History: Reports: Hx Asthma, Hx Chronic Obstructive Pulmonary Disease (COPD) GI History: Reports: Other GI Disorders - DX WITH ENDOMETRIOSIS Denies: Hx Ulcer History: Reports: Hx Kidney Stones Denies: Hx Renal Disease Musculoskeletal History: Reports: Other Musculoskeletal History - DDD; left knee partial ACL tear; left knee meniscus tear Sensory History: Reports: Hx Contacts or Glasses Denies: Hx Hearing Aid Opthamlomology History: Reports: Hx Contacts or Glasses Neurological History: Reports: Hx Migraine, Hx Seizures - topamax ....no seizures in years, Other Neuro Impairments/Disorders - MIGRAINES, EPILEPSY Psychiatric History: Reports: Hx Anxiety, Hx Depression Denies: Hx Panic Disorder - Cancer History Cancer Type, Location and Year: PRE CANCEROUS CELLS BILATERAL BREAST REMOVED - Surgical History Surgery Procedure, Year, and Place: APPENDIX IN 2000; (1) C-SECT IN 2005. BILAT BREAST BIOPSIES 2005,2006 - Immunization History Immunizations Up to Date: Yes Infectious Disease History: No Infectious Disease History: Denies: Hx Clostridium Difficile, Hx Hepatitis, Hx Human Immunodeficiency Virus (HIV), Hx of Known/Suspected MRSA, Hx Shingles, Hx Tuberculosis, Hx Known/ Suspected VRE, Hx Known/Suspected VRSA, History Other Infectious Disease, Traveled Outside the [place] in Last 30 Days - Family History Known Family History: Positive: Cardiac Disease, Hypertension - Social History Alcohol Use: None Hx Substance Use: No Substance Use Type: Reports: None Hx Tobacco Use: Yes Smoking Status (MU): Light Every Day Tobacco Smoker Type: Cigarettes Amount Used/How Often: 1-1 1/2 ppd Length of Time of Smoking/Using Tobacco: 25 yrs Have You Smoked in the Last Year: Yes Review of Systems Constitutional: Negative Positive: Sore Throat, Ear Ache, Nasal Discharge Cardiovascular: Negative Positive: Shortness Of Breath, Cough Gastrointestinal: Negative Musculoskeletal: Negative Positive: Headache All Other Systems Reviewed And Are Negative: Yes Physical Exam Triage Information Reviewed: Yes Vital Signs On Initial Exam: Initial Vitals Temp Pulse Resp BP Pulse Ox 98.8 F 78 20 135/76 100 10/20/17 09:36 01/05/17 09:36 01/05/17 09:36 01/05/17 09:36 01/05/17 09:36 non hypoxic, afebrile Vital Signs Reviewed: Yes Appearance: Positive: Well-Appearing, No Pain Distress, Well-Nourished Skin: Positive: Warm, Skin Color Reflects Adequate Perfusion, Dry. Negative: Cold, Numb, Cyanosis @, Pale, Erythema @ Head/Face: Positive: Normal Head/Face Inspection Eyes: Positive: Conjunctiva Clear ENT: Positive: Normal ENT inspection, Hearing grossly normal, Pharyngeal erythema, TMs normal. Negative: TM bulging, TM dull, TM red, Tonsillar swelling , Tonsillar exudate, Trismus, Muffled/hoarse voice Dental: Negative: Percussion Tenderness @ Neck: Positive: Supple, Nontender, No Lymphadenopathy Respiratory/Lung Sounds: Positive: Clear to Auscultation, Breath Sounds Present. Negative: Decreased Breath Sounds, Rales, Rhonchi, Wheezes Cardiovascular: Positive: Normal, RRR, Pulses are Symmetrical in both Upper and Lower Extremities. Negative: Murmur, Rub Abdomen Description: Positive: Nontender, Soft Bowel Sounds: Positive: Present Musculoskeletal: Positive: Normal, Strength/ROM Intact Neurological: Positive: Normal, Sensory/Motor Intact, Alert, Oriented to Person Place, Time Diagnostics - Vital Signs Vital Signs Temp Pulse Resp BP Pulse Ox 01/05/17 09:36 98.8 F 78 20 135/76 100 - Laboratory Lab Statement: Any lab studies that have been ordered have been reviewed, and results considered in the medical decision making process. - Radiology right foot Xray Interpretation: No Acute Changes - Negative for fracture. Mild nonfocal soft tissue swelling. Radiology Interpretation Completed By: Radiologist Complex Multi-Symp Course/Dx Course Of Treatment: due to complaint of symptoms, vital signs and PE findings does not appear necessary at this time for chest xray. normal lung sounds and vitals. not highly concerned for pneumonia and treatment would not change. xray of foot obtained and negative. no further workup appears necessary at this time. moses bandage applied on foot. RICE and NSAIDs. Refrain from use. Appears to have URI/Bronchitis. will treat with doxy due to symptoms ongoing for the past month and has not had relief. Also due to COPD history, still using cigarettes. Recommended to quit, given PCP referral to obtain and discuss quitting options as it is exacerbating symptoms. Flonase, fluids, ibuprofen, inhaler and antihistamine for symptoms. Aware of worsening signs and symptoms to watch out for. No concern for other emergent etiology at this time. Patient agrees and understands plan. Follow up. - Diagnoses Differential Diagnoses/HQI/PQRI: Other - fracture, sprain, strain, contusion, URI, bronchitis, pneumonia, URI, sinusitis Provider Diagnoses: Contusion of right foot, Bronchitis Discharge - Discharge Plan Condition: Stable Disposition: HOME Prescriptions: Cetirizine* [ZyrTEC 10 MG TAB*] 10 mg PO DAILY #10 tab DOXYcycline CAP(*) [DOXYcycline 100MG CAP(*)] 100 mg PO BID #14 cap Fluticasone DISKUS 100 MCG(NF) [Flovent Diskus 100 MCG(NF)] 1 puff INH BID #1 diskus Fluticasone NASAL * [Flonase *] 2 spray BOTH NARES DAILY #1 bottle Ibuprofen TAB* [Motrin TAB* 600 MG] 600 mg PO Q8H PRN #25 tab PRN Reason: Pain Patient Education Materials: Contusion in Adults (ED), Acute Bronchitis (ED), How to Use a Nebulizer (ED), Bronchospasm (ED) Referrals: No Primary Care Phys,NOPCP [Primary Care Provider] - [facility] [[facility]] Additional Instructions: Take prescribed medications as directed. Recommend saline nasal spray sold over the counter. Drink plenty of fluids. Rest. Extra pillow when laying down. Hot showers or humidified air. Rest, elevate, ice and refrain from strenuous use of right foot until symptoms improve. Wear moses bandage ~ 7 days. Follow up with PCP. Any new or worsening symptoms please seek medical attention, as discussed.
== END 2017-01-05 11:17 | disposition home or self-care (01) ==
LOC: ED 09:21
DX: S90.31XA Contusion of right foot, initial encounter (principal); J40 Bronchitis, not specified as acute or chronic; R09.81 Nasal congestion; J02.9 Acute pharyngitis, unspecified; R05 Cough; R06.02 Shortness of breath; Z87.09 Personal history of other diseases of the respiratory system; F17.210 Nicotine dependence, cigarettes, uncomplicated; W22.8XXA Striking against or struck by other objects, initial encounter; Y93.9 Activity, unspecified; Y92.9 Unspecified place or not applicable
CPT/HCPCS: 99282

== ENCOUNTER 2017-01-10 20:08 | Emergency (ER) | payer OTHER ==
[2017-01-10 20:17] VITALS: BP 149/80
[2017-01-10] MEDS ORDERED: Albuterol/Ipratropium NEB.SOL* Albuterol 2.5 MG/Ipratropium 0.5 MG 3 ML INH ONE (21:53)
--- NOTE | 2017-01-10 23:27 | ED ---
Upper Extremity Pain - HPI Summary HPI Summary: Patient presents to the ED with CC of chest discomfort d/t coughing, chest tightness, SOB, left hand pain from a work related injury and fatigue. She states she has had a cough for several weeks which is not improving with doxycycline 100mg BID. She states she usually is given 350-500mg TID for any respiratory issues. She states she does not feel the prescription is high enough and is requesting more. She also states she has pain in her left hand with swelling after pans at work fell on top of her hand. She notes some pain in the left shoulder joint as well but has full ROM. Denies fevers, sweats and chills, but notes to some fatigue x several weeks. There is no ecchymosis to the hand, not swelling but small abrasions to the dorsum of the left dorsum of the MCP and index. She is well known to the [facility] community and often comes to the ED with pain complaints. She notes to 10/10 pain, throbbing and worst of life. She is not allowing provider to touch the hand to evaluate. - History of Current Complaint Chief Complaint: EDExtremityUpper Stated Complaint: LT HAND SWOLLEN/CONGESTION Time Seen by Provider: 01/10/17 20:21 Hx Obtained From: Patient Hx Last Menstrual Period: 12/30/14 Mechanism Of Injury: Blunt Trauma Onset/Duration: Started Hours Ago Timing: Constant Severity Initially: Severe Severity Currently: Severe Character: Sharp - hand Aggravating Factor(s): Nothing Alleviating Factor(s): Nothing Associated Signs & Symptoms: Positive: Negative Related History: Dominant Hand Left - Risk Factors Non-Orthopedic Risk Factor: Negative DVT Risk Factors: Negative Septic Arthritis Risk Factor: Negative Compartment Syndrome Risk Factors: Pain - Allergies/Home Medications Allergies/Adverse Reactions: Allergies Allergy/AdvReac Type Severity Reaction Status Date / Time Levofloxacin [From Levaquin] Allergy Severe Anaphylatic Verified 10/20/16 00:19 Shock Amoxicillin [From Augmentin] Allergy Intermediate Hives Verified 10/20/16 00:19 Clavulanic Acid Allergy Intermediate Hives Verified 10/20/16 00:19 [From Augmentin] Moxifloxacin [From Avelox] Allergy Intermediate See Comment Verified 10/20/16 00 :19 Quinolones Allergy Anaphylatic Verified 10/20/16 00:19 Shock PMH/Surg Hx/FS Hx/Imm Hx Previously Healthy: Yes Endocrine/Hematology History: Reports: Hx Diabetes - pt does not take medication and does not know what type she has Denies: Hx Anticoagulant Therapy, Hx Thyroid Disease Cardiovascular History: Reports: Hx Hypercholesterolemia Denies: Hx Congestive Heart Failure, Hx Hypertension, Hx Pacemaker/ICD Respiratory History: Reports: Hx Asthma, Hx Chronic Obstructive Pulmonary Disease (COPD) GI History: Reports: Other GI Disorders - DX WITH ENDOMETRIOSIS Denies: Hx Ulcer History: Reports: Hx Kidney Stones Denies: Hx Renal Disease Musculoskeletal History: Reports: Other Musculoskeletal History - DDD; left knee partial ACL tear; left knee meniscus tear Sensory History: Reports: Hx Contacts or Glasses Denies: Hx Hearing Aid Opthamlomology History: Reports: Hx Contacts or Glasses Neurological History: Reports: Hx Migraine, Hx Seizures - topamax ....no seizures in years, Other Neuro Impairments/Disorders - MIGRAINES, EPILEPSY Psychiatric History: Reports: Hx Anxiety, Hx Depression Denies: Hx Panic Disorder - Cancer History Cancer Type, Location and Year: PRE CANCEROUS CELLS BILATERAL BREAST REMOVED - Surgical History Surgery Procedure, Year, and Place: APPENDIX IN 2000; (1) C-SECT IN 2005. BILAT BREAST BIOPSIES 2005,2006 - Immunization History Date of Tetanus Vaccine: up to date per pt report Hx Pertussis Vaccination: No Immunizations Up to Date: Unable to Obtain/Confirm Infectious Disease History: No Infectious Disease History: Denies: Hx Clostridium Difficile, Hx Hepatitis, Hx Human Immunodeficiency Virus (HIV), Hx of Known/Suspected MRSA, Hx Shingles, Hx Tuberculosis, Hx Known/ Suspected VRE, Hx Known/Suspected VRSA, History Other Infectious Disease, Traveled Outside the [place] in Last 30 Days - Family History Known Family History: Positive: Cardiac Disease, Hypertension - Social History Occupation: Employed Part-time Lives: Alone Alcohol Use: None Hx Substance Use: No Substance Use Type: Reports: None Hx Tobacco Use: Yes Smoking Status (MU): Light Every Day Tobacco Smoker Type: Cigarettes Amount Used/How Often: 1-1 1/2 ppd Length of Time of Smoking/Using Tobacco: 25 yrs Have You Smoked in the Last Year: Yes Review of Systems - ROS Summary Review of Systems Summary: Constitutional: The patient denies fever, FERREIRA. HEENT: Head: The patient denies headaches or dizziness. Eyes: The patient denies diplopia, blurry vision, eye pain, eye discharge, photophobia. Throat: The patient denies sore throats or hoarseness. Cardiovascular: The patient denies chest pain, palpitations, syncope, night cramps, or orthostasis. Respiratory: The patient endorses cough, sputum production, dyspnea, wheezing. Gastrointestinal: The patient denies odynophagia, dysphagia, hematemesis, melenemesis. Denies abdominal pain, nausea or vomiting. Denies constipation or diarrhea. Genitourinary: Patient denies dysuria, hematuria, or pyuria. Patient denies back pain. Denies vaginal discharge, vaginal bleeding. Denies other urinary symptoms. Muscles: The patient denies myalgia, strain or weakness. Joints: The patient endorses diffuse arthralgia throughout the left hand with swelling. Constitutional: Negative Negative: Fever, Chills, Fatigue Eyes: Negative Cardiovascular: Negative Respiratory: Negative Negative: Shortness Of Breath, Cough Genitourinary: Negative Positive: no symptoms reported, see HPI Positive: Arthralgia - left hand pain Positive: Other - 3 small abrasions to the dorsum of the MCP joints on the left hand Neurological: Negative All Other Systems Reviewed And Are Negative: Yes Physical Exam - Summary Physical Exam Summary: Appearance: WDW, comfortable, pleasant, alert Skin: Soft dry skin, no lesions. Nailbeds pink with no cyanosis or clubbing. No petechia noted. Eyes: JOSEPH, EOMI, Conjunctiva pink with no redness or exudates. Mouth: Dentition without lesions. Moist mucosa Neck: Full range of motion. Palpable thyroid. Trachea at midline. No lymphadenopathy. Pulm: Chest symmetrical expansion. No deformities on posterior chest wall. Lungs clear to auscultation and percussion, without adventitious sounds. CV: No JVD. No deformities on anterior chest wall. Heart soundsRRR, Normal S1 and single S2. No S3, S4, rubs, or murmurs. Carotids 2+ bilaterally without bruits. . exam not performed Musculoskeletal: Unable to assess pain in the left hand d/t patient uncooperative. Neuro: Motor strength is 5/5 in upper and lower extremities bilaterally. A&OX3 Psych: Coherent Triage Information Reviewed: Yes Vital Signs On Initial Exam: Initial Vitals Temp Pulse Resp BP Pulse Ox 98.1 F 97 16 149/80 100 01/10/17 20:12 01/10/17 20:12 10/25/17 20:12 01/10/17 20:12 01/10/17 20:12 Vital Signs Reviewed: Yes Appearance: Positive: Well-Appearing, Well-Nourished Skin: Positive: Warm, Skin Color Reflects Adequate Perfusion, Other - 3 small abrasions to the dorsum of the MCP joints on the left hand Head/Face: Positive: Normal Head/Face Inspection Eyes: Positive: EOMI, JOSEPH, Conjunctiva Clear Neck: Positive: Supple, No Lymphadenopathy Respiratory/Lung Sounds: Positive: Clear to Auscultation, Breath Sounds Present Cardiovascular: Positive: RRR, Pulses are Symmetrical in both Upper and Lower Extremities Musculoskeletal: Positive: Normal, Strength/ROM Intact Neurological: Positive: Sensory/Motor Intact, Alert, Oriented to Person Place, Time, Speech Normal Psychiatric: Positive: Normal AVPU Assessment: Alert Diagnostics - Vital Signs Vital Signs Temp Pulse Resp BP Pulse Ox 01/10/17 20:12 98.1 F 97 16 149/80 100 - Laboratory Lab Statement: Any lab studies that have been ordered have been reviewed, and results considered in the medical decision making process. Course/Dx - Course Course Of Treatment: Patient is evaluated for left hand pain. Unable to evaluate the patients hand d/t patient non-compliance. I have agreed to order an xray of the hand to evaluate for fractures. Also, ordered a chest xray d/t SOB and history of PNA stating this feels the same. 3 small abrasions to the dorsum of the MCP joints on the left hand. Xray read by Dr. Medrano and myself in the ED as negative. Chest xray ready by Dr. Medrano and myself as negative. Patient is given these results to where she becomes very upset. She states she would like to see the image. Provider gave an enlarged version of the xray image to the patient and she remains very upset. I have asked her what I could do to help her and she states she would like a second opinion. I have encouraged her to do so and communicated to the patient that another physician ( a radiologist) will read the xray as well and will call with any abnormal results. I have asked her to follow up with [facility] ortho to which she refuses, stating she does not like them. I have also offered to wrap the hand in moses wrap and she is refusing. I have then asked her what else I can do to help her, stating she seems very upset. I have again stated this is very "good news" and I wish I had a better reason for her pain and she then states she would like me to leave and be discharged, stating she did not like that comment. Again, I asked how I can help and what I can do for her and she begins to raise her voice and becomes very agitated. I have called security as a backup and patient is discharged with no follow ups d/t refusal. - Diagnoses Differential Diagnosis/HQI/PQRI: Positive: Contusion Provider Diagnoses: Hand contusion Discharge - Discharge Plan Condition: Stable Disposition: HOME Patient Education Materials: Contusion in Adults (ED) Referrals: No Primary Care Phys,NOPCP [Primary Care Provider] - Additional Instructions: Please get a second opinion on the hand. We will also have another physician look over the xray and call for any abnormal results. I am sorry I cannot give you better news or a reason for your pain and am sorry for any pain you are having Please take ibuprofen 600mg three times daily Use ice to the area with a towel
--- NOTE | 2017-01-11 07:33 | RAD ---
INDICATION: Pain at the first second and third digits COMPARISON: None. TECHNIQUE: 4 views of the left hand were obtained. FINDINGS: The adequately corticated bones are in normal alignment. No significant focal osseous abnormality or fracture is seen. Joint spaces appear maintained. IMPRESSION: Normal left hand radiograph. If the patient's symptoms persist, follow-up imaging is recommended.
--- NOTE | 2017-01-11 07:34 | RAD ---
INDICATION: Chest pain and cough x2 weeks COMPARISON: Chest x-ray dated June 22, 2016 TECHNIQUE: PA and lateral views of the chest were obtained. FINDINGS: The heart and mediastinum are normal in size and contour. The lungs are grossly clear. There is no evidence of large pleural effusion. Visualized bones are normal for the patient's age. There is no radiographic evidence of free air beneath the diaphragm IMPRESSION: No radiographic evidence of acute cardiopulmonary disease.
== END 2017-01-10 23:32 | disposition home or self-care (01) ==
LOC: ED 20:08
DX: S60.222A Contusion of left hand, initial encounter (principal); R07.9 Chest pain, unspecified; E11.9 Type 2 diabetes mellitus without complications; R06.02 Shortness of breath; R05 Cough; Z87.09 Personal history of other diseases of the respiratory system; F17.210 Nicotine dependence, cigarettes, uncomplicated; W22.8XXA Striking against or struck by other objects, initial encounter; Y93.9 Activity, unspecified; Y92.9 Unspecified place or not applicable
CPT/HCPCS: 71020; 99282; A9270-GY

== ENCOUNTER 2017-05-03 01:00 | Emergency (ER) | payer OTHER ==
[2017-05-03] MEDS ORDERED: NS 0.9% 1000 ML* 1,000 ML IV ONE (01:52)
[2017-05-03] MEDS ORDERED: Ibuprofen TAB* 600 MG PO ONE (01:52)
[2017-05-03 02:54] LABS: ABS Basophils 0.1 10^3/ul (0-0.2); ABS Eosinophils 0.3 10^3/ul (0-0.6); ABS Lymphocytes 2.9 10^3/ul (1.0-4.8); ABS Monocytes 0.8 10^3/ul (0-0.8); ABS Neutrophils 6.3 10^3/ul (1.5-7.7); ABS Nucleated RBC 0 10^3/ul; Eosinophil % 2.5 % (0-6); Hematocrit 46 % (35-47); Hemoglobin 15.3 g/dl (12.0-16.0); Lymphocyte % 28.2 % (25-47); Mean Corpuscular HGB Conc 33 g/dl (31-36); Mean Corpuscular Hemoglobin 32 pg (27-31); Mean Corpuscular Volume 96 fL (80-97); Mean Platelet Volume 9 um3 (7.4-10.4); Nucleated Red Blood Cells % 0.2; Platelet Count 243 10^3/ul (150-450); Red Cell Distribution Width 15 % (10.5-15); White Blood Count 10.5 10^3/ul (3.5-10.8)
[2017-05-03 03:06] LABS: EGFR Non-African American 94.8 (>60)
[2017-05-03 03:09] LABS: INR 0.83 (0.77-1.02)
[2017-05-03] MEDS ORDERED: Iodixanol* (CONTRAST) 320 MG/ML 100 ML SDV IV ONE (04:04)
[2017-05-03 06:41] VITALS: BP 129/84
--- NOTE | 2017-05-03 08:21 | RAD ---
HISTORY: Left chest pain COMPARISONS: March 06, 2013 TECHNIQUE: Multiple contiguous axial CT scans of the chest were obtained after the administration of nonionic intravenous contrast, timed to the pulmonary arterial phase of contrast enhancement.. Coronal and sagittal multiplanar reformations are also submitted for review. FINDINGS: Evaluation is limited by patient breathing motion artifact. NECK AND THYROID: The lower neck and thyroid are unremarkable. CHEST WALL: There is no lower cervical, axillary, or supraclavicular lymphadenopathy by size criteria. HEART AND PERICARDIUM: The heart is unremarkable. AORTA AND PULMONARY VASCULATURE: There is no pulmonary arterial filling defect to suggest pulmonary embolism. There is no linear filling defect within the aorta to suggest aortic dissection. MEDIASTINUM: There is no mediastinal lymphadenopathy by size criteria. STEWART: There is no hilar lymphadenopathy by size criteria. AIRWAY AND ESOPHAGUS: The airway is unremarkable, without endobronchial filling defect. The esophagus is grossly normal. LUNG PARENCHYMA: There is a 0.4 cm nodule of the left middle lobe. This can be identified on the previous examination and is stable consistent with a benign nodule. PLEURA: No pleural abnormalities are noted. UPPER ABDOMEN: The upper abdomen is unremarkable. BONES AND SOFT TISSUES: Mild degenerative changes are noted OTHER: None. IMPRESSION: NO PULMONARY ARTERIAL FILLING DEFECT TO SUGGEST PULMONARY EMBOLISM.
--- NOTE | 2017-05-03 08:25 | ED ---
Tapan Arnett Nilda, scribed for Blu Maldonaod MD on 05/03/17 at 0155 . HPI Chest Pain - HPI Summary HPI Summary: This patient is a 47 year old F presenting to [facility] with a chief complaint of constant left sided CP radiating to left shoulder for the past few days. The patient rates the pain 10/10 in severity. Symptoms aggravated by palpation and alleviated by nothing. Patient reports recent Dx of PNA and has been on abx with no relief. NKDA. - History of Current Complaint Chief Complaint: EDChestPainROMI Time Seen by Provider: 05/03/17 01:45 Hx Obtained From: Patient Hx Last Menstrual Period: 12/30/14 Onset/Duration: Started Days Ago, Still Present Timing: Constant Current Severity: Severe Pain Intensity: 10 Pain Scale Used: 0-10 Numeric Chest Pain Location: Left Lateral Chest Pain Radiates: Yes Chest Pain Radiates To:: Shoulder - left Aggravating Factor(s): Other: - palpation Alleviating Factor(s): Nothing - Allergy/Home Medications Allergies/Adverse Reactions: Allergies Allergy/AdvReac Type Severity Reaction Status Date / Time MS Levofloxacin Allergy Severe Anaphylatic Verified 10/20/16 00:19 [From Levaquin] Shock MS Amoxicillin Allergy Intermediate Hives Verified 10/20/16 00:19 [From Augmentin] MS Clavulanic Acid Allergy Intermediate Hives Verified 10/20/16 00:19 [From Augmentin] MS Moxifloxacin [From Avelox] Allergy Intermediate See Comment Verified 00:19 MS Quinolones [Quinolones] Allergy Anaphylatic Verified 10/20/16 00:19 Shock PMH/Surg Hx/FS Hx/Imm Hx Endocrine/Hematology History: Reports: Hx Diabetes - pt does not take medication and does not know what type she has Denies: Hx Anticoagulant Therapy, Hx Thyroid Disease Cardiovascular History: Reports: Hx Coronary Artery Disease, Hx Hypercholesterolemia Denies: Hx Congestive Heart Failure, Hx Hypertension, Hx Pacemaker/ICD Respiratory History: Reports: Hx Asthma, Hx Chronic Obstructive Pulmonary Disease (COPD) GI History: Reports: Other GI Disorders - DX WITH ENDOMETRIOSIS Denies: Hx Ulcer History: Reports: Hx Kidney Stones Denies: Hx Renal Disease Musculoskeletal History: Reports: Other Musculoskeletal History - DDD; left knee partial ACL tear; left knee meniscus tear Sensory History: Reports: Hx Contacts or Glasses Denies: Hx Hearing Aid Opthamlomology History: Reports: Hx Contacts or Glasses Neurological History: Reports: Hx Migraine, Hx Seizures - topamax ....no seizures in years, Other Neuro Impairments/Disorders - MIGRAINES, EPILEPSY Psychiatric History: Reports: Hx Anxiety, Hx Depression Denies: Hx Panic Disorder - Cancer History Cancer Type, Location and Year: PRE CANCEROUS CELLS BILATERAL BREAST REMOVED - Surgical History Surgery Procedure, Year, and Place: APPENDIX IN 2000; (1) C-SECT IN 2005. BILAT BREAST BIOPSIES 2005,2006 - Immunization History Date of Tetanus Vaccine: up to date per pt report Infectious Disease History: No Infectious Disease History: Denies: Hx Clostridium Difficile, Hx Hepatitis, Hx Human Immunodeficiency Virus (HIV), Hx of Known/Suspected MRSA, Hx Shingles, Hx Tuberculosis, Hx Known/ Suspected VRE, Hx Known/Suspected VRSA, History Other Infectious Disease, Traveled Outside the [place] in Last 30 Days - Family History Known Family History: Positive: Cardiac Disease, Hypertension - Social History Alcohol Use: Rare Hx Substance Use: No Substance Use Type: Reports: None Hx Tobacco Use: Yes Smoking Status (MU): Light Every Day Tobacco Smoker Type: Cigarettes Amount Used/How Often: 1-1 1/2 ppd Length of Time of Smoking/Using Tobacco: 25 yrs Have You Smoked in the Last Year: Yes Review of Systems Positive: Chest Pain Positive: Other - left shoulder pain All Other Systems Reviewed And Are Negative: Yes Physical Exam - Summary Physical Exam Summary: General: well-appearing, mild pain distress Skin: warm, color reflects adequate perfusion, dry Head: normal Eyes: EOMI, JOSEPH ENT: normal Neck: supple, nontender Respiratory: CTA, breath sounds present, coughing Cardiovascular: RRR Abdomen: soft, nontender Bowel: present Musculoskeletal: strength/ROM intact, trace pedal edema bilaterally Neurological: normal, sensory/motor intact, A&O x3 Psychological: affect/mood appropriate Triage Information Reviewed: Yes Vital Signs On Initial Exam: Initial Vitals Temp Pulse Resp BP Pulse Ox 98.2 F 93 20 139/85 95 05/03/17 01:07 05/03/17 01:07 05/03/17 01:07 05/03/17 01:07 05/03/17 01:07 Vital Signs Reviewed: Yes Diagnostics - Vital Signs Vital Signs Temp Pulse Resp BP Pulse Ox 05/03/17 01:07 98.2 F 93 20 139/85 95 - Laboratory Lab Results: Lab Results 05/03/17 05/03/17 05/03/17 Range/Units 02:00 02:00 02:00 WBC (3.5-10.8) 10^3/ul RBC (4.0-5.4) 10^6/ul Hgb (12.0-16.0) g/dl Hct (35-47) % MCV (80-97) fL MCH (27-31) pg MCHC (31-36) g/dl RDW (10.5-15) % Plt Count (150-450) 10^3/ul MPV (7.4-10.4) um3 Neut % (Auto) (38-83) % Lymph % (Auto) (25-47) % Frederick % (Auto) (1-9) % Eos % (Auto) (0-6) % Baso % (Auto) (0-2) % Absolute Neuts (auto) (1.5-7.7) 10^3/ul Absolute Lymphs (auto) (1.0-4.8) 10^3/ul Absolute Monos (auto) (0-0.8) 10^3/ul Absolute Eos (auto) (0-0.6) 10^3/ul Absolute Basos (auto) (0-0.2) 10^3/ul Absolute Nucleated RBC 10^3/ul Nucleated RBC % INR (Anticoag Therapy) 0.83 (0.77-1.02) APTT 33.1 (26.0-36.3) seconds D-Dimer, Quantitative < 200 (Less Than 230) ng/mL Sodium 133 (133-145) mmol/L Potassium 4.3 (3.5-5.0) mmol/L Chloride 104 (101-111) mmol/L Carbon Dioxide 23 (22-32) mmol/L Anion Gap 6 (2-11) mmol/L BUN 15 (6-24) mg/dL Creatinine 0.67 (0.51-0.95) mg/dL Est GFR ( Amer) 121.9 (>60) Est GFR (Non-Af Amer) 94.8 (>60) BUN/Creatinine Ratio 22.4 H (8-20) Glucose 108 H (70-100) mg/dL Lactic Acid (0.5-2.0) mmol/L Calcium 9.4 (8.6-10.3) mg/dL Magnesium 1.9 (1.9-2.7) mg/dL Total Bilirubin 0.40 (0.2-1.0) mg/dL AST 18 (13-39) U/L ALT 22 (7-52) U/L Alkaline Phosphatase 65 (34-104) U/L Troponin I 0.00 (<0.04) ng/mL C-Reactive Protein 3.76 (< 5.00) mg/L B-Natriuretic Peptide 30 ( - 100) pg/mL Total Protein 6.7 (6.4-8.9) g/dL Albumin 3.9 (3.2-5.2) g/dL Globulin 2.8 (2-4) g/dL Albumin/Globulin Ratio 1.4 (1-3) TSH 1.20 (0.34-5.60) mcIU/mL Beta HCG, Quant 2.83 mIU/mL 05/03/17 05/03/17 Range/Units 02:00 02:00 WBC 10.5 (3.5-10.8) 10^3/ul RBC 4.80 (4.0-5.4) 10^6/ul Hgb 15.3 (12.0-16.0) g/dl Hct 46 (35-47) % MCV 96 (80-97) fL MCH 32 H (27-31) pg MCHC 33 (31-36) g/dl RDW 15 (10.5-15) % Plt Count 243 (150-450) 10^3/ul MPV 9 (7.4-10.4) um3 Neut % (Auto) 60.3 (38-83) % Lymph % (Auto) 28.2 (25-47) % Frederick % (Auto) 7.9 (1-9) % Eos % (Auto) 2.5 (0-6) % Baso % (Auto) 1.1 (0-2) % Absolute Neuts (auto) 6.3 (1.5-7.7) 10^3/ul Absolute Lymphs (auto) 2.9 (1.0-4.8) 10^3/ul Absolute Monos (auto) 0.8 (0-0.8) 10^3/ul Absolute Eos (auto) 0.3 (0-0.6) 10^3/ul Absolute Basos (auto) 0.1 (0-0.2) 10^3/ul Absolute Nucleated RBC 0 10^3/ul Nucleated RBC % 0.2 INR (Anticoag Therapy) (0.77-1.02) APTT (26.0-36.3) seconds D-Dimer, Quantitative (Less Than 230) ng/mL Sodium (133-145) mmol/L Potassium (3.5-5.0) mmol/L Chloride (101-111) mmol/L Carbon Dioxide (22-32) mmol/L Anion Gap (2-11) mmol/L BUN (6-24) mg/dL Creatinine (0.51-0.95) mg/dL Est GFR ( Amer) (>60) Est GFR (Non-Af Amer) (>60) BUN/Creatinine Ratio (8-20) Glucose (70-100) mg/dL Lactic Acid 1.0 (0.5-2.0) mmol/L Calcium (8.6-10.3) mg/dL Magnesium (1.9-2.7) mg/dL Total Bilirubin (0.2-1.0) mg/dL AST (13-39) U/L ALT (7-52) U/L Alkaline Phosphatase (34-104) U/L Troponin I (<0.04) ng/mL C-Reactive Protein (< 5.00) mg/L B-Natriuretic Peptide ( - 100) pg/mL Total Protein (6.4-8.9) g/dL Albumin (3.2-5.2) g/dL Globulin (2-4) g/dL Albumin/Globulin Ratio (1-3) TSH (0.34-5.60) mcIU/mL Beta HCG, Quant mIU/mL Result Diagrams: 05/03/17 02:00 05/03/17 02:00 Lab Statement: Any lab studies that have been ordered have been reviewed, and results considered in the medical decision making process. - CT CTA Chest/Thorax CT Interpretation Completed By: Radiologist - No PE. Dr. Maldonado has reviewed this report. - EKG 01:13 Cardiac Rate: NL EKG Rhythm: Sinus Rhythm - [address] Segment: Normal Ectopy: None Chest Pain Course/Dx - Course Assessment/Plan: This patient is a 47 year old F presenting to [facility] with a chief complaint of constant left sided CP radiating to left shoulder for the past few days. The patient rates the pain 10/10 in severity. Symptoms aggravated by palpation and alleviated by nothing. Patient reports recent Dx of PNA and has been on abx with no relief. NKDA. BP noted and advised to follow up with PCP. Allergies noted. Medications reviewed. An EKG reveals NSR, 85 bpm, nml ST, no ectopy. CTA Chest/Thorax, per radiologist, reveals no PE. Dr. Maldonado has reviewed this report. DISCUSSED RESULTS WITH PATIENT. F/U PMD; RETURN IF WORSE. - Diagnoses Provider Diagnoses: Blood pressure elevated without history of HTN, Chest pain Discharge - Discharge Plan Condition: Stable Disposition: HOME Patient Education Materials: Chest Pain (ED), Pleurisy (ED), Chest Wall Pain ( ED) Forms: *Work Release Referrals: Carrington Gaitan PROPOSAL CONSULTANT [Primary Care Provider] - Additional Instructions: FOLLOW UP WITH YOUR DOCTOR. RETURN TO THE EMERGENCY DEPARTMENT FOR ANY WORSENING OF YOUR CONDITION OR QUESTIONS OR CONCERNS. Your blood pressure was elevated during todays visit; please follow up with your primary care provider within a week for further evaluation. The documentation as recorded by the Tapan lawrence Nilda accurately reflects the service I personally performed and the decisions made by me, Blu Maldonado MD.
== END 2017-05-03 06:45 | disposition home or self-care (01) ==
LOC: ED 01:00
DX: R03.0 Elevated blood-pressure reading, without diagnosis of hypertension (principal); R07.9 Chest pain, unspecified; F17.210 Nicotine dependence, cigarettes, uncomplicated; M25.512 Pain in left shoulder
CPT/HCPCS: 36415; 71275; 80053; 83605; 83735; 83880; 84443; 84484; 84702; 85025; 85379; 85610; 85730; 86140; 93005; 99283; A9270-GY; Q9967

== ENCOUNTER 2017-07-08 10:04 | Emergency (ER) | payer OTHER ==
[2017-07-08 10:12] VITALS: BP 124/84
--- NOTE | 2017-07-08 11:15 | UC ---
Dino Arnett Jennifer, scribed for Kim Haney MD on 07/08/17 at 1057 . General HPI - HPI Summary HPI Summary: The patient is a 47 year old female who presents with sore throat and productive cough for the past two weeks. The patient reports she feels generally ill and run down with decreased sleep and fatigue. She reports her throat hurts when she swallows or talks and she produces green sputum when she coughs. She additionally complains of chest tightness and right ear pain and itchiness, as well as recent stress. The patient denies fevers, nausea, vomiting , diarrhea, and issues with eating or drinking. She reports she last used Albuterol and Dayquil this morning. History of asthma and COPD; has been using albuterol up to 4 times per day. Steroids in the past have caused severe insomnia. - History of Current Complaint Chief Complaint: UCRespiratory Stated Complaint: URI Time Seen by Provider: 07/08/17 10:48 Hx Obtained From: Patient Hx Last Menstrual Period: 12/30/14 Onset/Duration: Sudden Onset, Lasting Weeks - 2 weeks, Still Present Timing: Constant Onset Severity: Moderate Current Severity: Moderate Pain Intensity: 8 Pain Location at: Throat pain Associated Signs & Symptoms: Positive: Other - sore throat, productive cough, decreased sleep, fatigue, chest tightness, right ear pain and itchiness. NEGATIVE: fever, nausea, vomiting, diarrhea, issues with eating or drinking - Allergy/Home Medications Allergies/Adverse Reactions: Allergies Allergy/AdvReac Type Severity Reaction Status Date / Time amoxicillin Allergy Hives Verified 07/08/17 10:15 levofloxacin [From Levaquin] Allergy Anaphylatic Verified 07/08/17 10:15 Shock moxifloxacin [From Avelox] Allergy See Comment Verified 07/08/17 10:15 Quinolones Allergy Anaphylatic Verified 07/08/17 10:15 Shock Home Medications: Home Medications Fluticasone-Salmeterol 100-50* [Advair Diskus 100-50*] 1 puff INH BID 07/08/17 [ History Confirmed 07/08/17] PMH/Surg Hx/FS Hx/Imm Hx Endocrine History: Diabetes - Type 2 Respiratory History: COPD, Asthma Other History Of: Negative For: Anticoagulant Therapy - Surgical History Surgical History: Yes Surgery Procedure, Year, and Place: APPENDIX IN 2000; (1) C-SECT IN 2005. BILAT BREAST BIOPSIES 2005,2007 - Family History Known Family History: Positive: Cardiac Disease, Hypertension - Social History Occupation: Unemployed Lives: With Family Alcohol Use: Occasionally Substance Use Type: None Smoking Status (MU): Heavy Every Day Tobacco Smoker Type: Cigarettes Amount Used/How Often: 1-1 1/2 ppd Length of Time of Smoking/Using Tobacco: 25 yrs Have You Smoked in the Last Year: Yes When Did the Patient Quit Smoking/Using Tobacco: 2 MONTHS Household Exposure Type: Cigarettes - Immunization History Most Recent Tetanus Shot: 01/06/15 Left arm Review of Systems Constitutional: Fatigue, Other - Decreased sleep ENT: Sore Throat, Ear Ache - Right ear pain and itchiness Respiratory: Cough - Productive Cardiovascular: Other - Chest tightness Gastrointestinal: Negative - Nausea, vomiting, diarrhea Musculoskeletal: Arthralgia - left knee pain following meniscal tear. Is Patient Immunocompromised?: No All Other Systems Reviewed And Are Negative: Yes Physical Exam Triage Information Reviewed: Yes Appearance: Ill-Appearing - looks mildly unwell Vital Signs: Initial Vital Signs Temp 97.8 F 07/08/17 10:08 Pulse 84 07/08/17 10:08 Resp 18 07/08/17 10:08 BP 124/84 07/08/17 10:08 Pulse Ox 99 07/08/17 10:08 Eyes: Positive: Conjunctiva Clear ENT: Positive: TM dull - right TM with serous fluid.. Negative: Tonsillar swelling, Tonsillar exudate Respiratory: Positive: Decreased breath sounds - mildly decreased breath sounds with prolonged expiration, Rhonchi - scattered. Cardiovascular: Positive: RRR, No Murmur Abdomen Description: Positive: Nontender Musculoskeletal: Positive: ROM Limited @ - left knee Neurological Exam: Normal Skin Exam: Normal Course/Dx - Course Course Of Treatment: The patient is a 47 year old female who presents with sore throat and productive cough for the past two weeks. Pt medications reviewed this visit. Allergies noted. Doxycyline for asthma/COPD exacerbation, continue inhalers. - Differential Dx - Multi-Symptom Provider Diagnoses: exacerbation of asthma an COPD Discharge - Sign-Out/Discharge Documenting (check all that apply): Discharge - Discharge Plan Condition: Stable Disposition: HOME Prescriptions: DOXYcycline CAP(*) [DOXYcycline 100MG CAP(*)] 100 mg PO BID #20 cap Patient Education Materials: COPD (Chronic Obstructive Pulmonary Disease) (ED) Referrals: Carrington Gaitan, INCL[employer]ED RAILWAY OPERATOR [Primary Care Provider] - Additional Instructions: Begin doxycycline due to history of COPD and asthma. Continue use of advair twice daily, along with albuterol as needed. - Billing Disposition and Condition Condition: STABLE Disposition: HOME The documentation as recorded by the Dino lawrence Jennifer accurately reflects the service I personally performed and the decisions made by me, Kim Haney MD.
== END 2017-07-08 11:19 | disposition home or self-care (01) ==
LOC: UCEAST 10:04
DX: J44.1 Chronic obstructive pulmonary disease with (acute) exacerbation (principal); J02.9 Acute pharyngitis, unspecified; R05 Cough; R53.83 Other fatigue; H92.01 Otalgia, right ear; L29.9 Pruritus, unspecified; E11.9 Type 2 diabetes mellitus without complications; Z88.1 Allergy status to other antibiotic agents; Z88.0 Allergy status to penicillin; Z88.8 Allergy status to other drugs, medicaments and biological substances; Z87.891 Personal history of nicotine dependence
CPT/HCPCS: 99212; G0463

== ENCOUNTER 2017-08-21 08:54 | Emergency (ER) | payer OTHER ==
[2017-08-21] MEDS ORDERED: Dexamethasone Oral Solution* 1 MG/ML 10 ML UDC (10 MG) PO ONE (09:35)
[2017-08-21] MEDS ORDERED: Albuterol/Ipratropium NEB.SOL* Albuterol 2.5 MG/Ipratropium 0.5 MG 3 ML INH ONE (09:35)
[2017-08-21] MEDS ORDERED: Naproxen TAB* 250 MG PO ONE (09:36)
[2017-08-21 09:52] LABS: ABS Basophils 0.1 10^3/ul (0-0.2); ABS Eosinophils 0.2 10^3/ul (0-0.6); ABS Lymphocytes 1.8 10^3/ul (1.0-4.8); ABS Monocytes 0.6 10^3/ul (0-0.8); ABS Neutrophils 6.4 10^3/ul (1.5-7.7); ABS Nucleated RBC 0 10^3/ul; Eosinophil % 2.1 % (0-6); Hematocrit 52 % (35-47); Hemoglobin 17.3 g/dl (12.0-16.0); Lymphocyte % 19.5 % (25-47); Mean Corpuscular HGB Conc 33 g/dl (31-36); Mean Corpuscular Hemoglobin 32 pg (27-31); Mean Corpuscular Volume 96 fL (80-97); Mean Platelet Volume 8.6 um3 (7.4-10.4); Nucleated Red Blood Cells % 0.1; Platelet Count 242 10^3/ul (150-450); Red Blood Count 5.44 10^6/ul (4.0-5.4); Red Cell Distribution Width 16 % (10.5-15); White Blood Count 9.1 10^3/ul (3.5-10.8)
[2017-08-21 10:10] LABS: Urine Appearance Clear; Urine Blood Negative (Negative); Urine Color Yellow; Urine Ketones Negative (Negative); Urine Protein Negative (Negative); Urine Specific Gravity 1.013 (1.010-1.030); Urine Urobilinogen Negative (Negative)
--- NOTE | 2017-08-21 10:53 | RAD ---
HISTORY: Chest pain COMPARISONS: January 10, 2017 VIEWS: 4: Frontal dual-energy and lateral views of the chest. FINDINGS: CARDIOMEDIASTINAL SILHOUETTE: The cardiomediastinal silhouette is normal. STEWART: The stewart are normal. PLEURA: The costophrenic angles are sharp. No pleural abnormalities are noted. LUNG PARENCHYMA: The lungs are clear. ABDOMEN: The upper abdomen is clear. There is no subphrenic gas. BONES AND SOFT TISSUES: Minimal degenerative changes are noted. OTHER: None. IMPRESSION: NO ACTIVE CARDIOPULMONARY DISEASE.
[2017-08-21] MEDS ORDERED: Albuterol 2.5 MG/3 ML NEB.SOL* (0.083%) INH ONE (12:40)
[2017-08-21 13:19] VITALS: BP 120/80
--- NOTE | 2017-08-24 08:39 | ED ---
Oscar Arnett Stephanie, scribed for Ketan Kim MD on 08/21/17 at 0939 . Back Pain - HPI Summary HPI Summary: The pt is a 47 y/o F presenting to the ED with c/o back pain that worsened over the past few days. Symptoms include polyuria, bladder incontinence, eye pain in the posterior eyes bilaterally, CP, cough with green sputum, green nasal discharge and chronic L knee pain due to ACL tear. She reports her eye pain is alleviated by direct contact with ice. The pt states her back pain is located over her bilateral lower back. She states she is having trouble getting out of bed in the morning due to her pain. She reports she feels as though she has to urinate when she does not. She takes ibuprofen regularly for her back and R knee pain. The pt states her awareness of necessity to quit smoking. - History of Current Complaint Chief Complaint: EDAbdPain Stated Complaint: FLANK & ABD PAIN Time Seen by Provider: 08/21/17 09:12 Hx Obtained From: Patient Hx Last Menstrual Period: 12/30/14 Onset/Duration: Gradual Onset, Lasting Weeks, Still Present Onset/Duration: Started Weeks Ago, Still Present, Worse Since - last few days Timing: Constant Back Pain Location: Is Discrete @ - Lower back Severity Currently: Severe Pain Intensity: 10 Pain Scale Used: 0-10 Numeric Aggravating Symptom(s): Movement Alleviating Symptom(s): Nothing Associated Signs And Symptoms: Positive: Bladder Incontinence - polyuria, eye pain in the posterior eyes bilaterally, CP, cough with green sputum, green nasal discharge and chronic L knee pain due to ACL tear - Allergies/Home Medications Allergies/Adverse Reactions: Allergies Allergy/AdvReac Type Severity Reaction Status Date / Time amoxicillin Allergy Hives Verified 08/21/17 09:07 levofloxacin [From Levaquin] Allergy Anaphylatic Verified 08/21/17 09:07 Shock moxifloxacin [From Avelox] Allergy See Comment Verified 08/21/17 09:07 Quinolones Allergy Anaphylatic Verified 08/21/17 09:07 Shock Home Medications: Home Medications Albuterol HFA INHALER* [Ventolin HFA Inhaler*] 1 - 2 puff INH Q4H PRN 08/21/17 [ History Confirmed 08/21/17] Ibuprofen TAB* [Advil TAB*] 600 mg PO Q6H PRN 08/21/17 [History Confirmed ] Varenicline (NF) [Chantix 1 MG TAB (NF)] 1 mg PO DAILY 08/21/17 [History Confirmed 08/21/17] PMH/Surg Hx/FS Hx/Imm Hx Endocrine/Hematology History: Reports: Hx Diabetes - pt does not take medication and does not know what type she has Denies: Hx Anticoagulant Therapy, Hx Thyroid Disease Cardiovascular History: Reports: Hx Coronary Artery Disease, Hx Hypercholesterolemia Denies: Hx Congestive Heart Failure, Hx Hypertension, Hx Pacemaker/ICD Respiratory History: Reports: Hx Asthma, Hx Chronic Obstructive Pulmonary Disease (COPD) GI History: Reports: Other GI Disorders - DX WITH ENDOMETRIOSIS Denies: Hx Ulcer History: Reports: Hx Kidney Stones Denies: Hx Renal Disease Musculoskeletal History: Reports: Other Musculoskeletal History - DDD; left knee partial ACL tear; left knee meniscus tear Sensory History: Reports: Hx Contacts or Glasses Denies: Hx Hearing Aid Opthamlomology History: Reports: Hx Contacts or Glasses Neurological History: Reports: Hx Migraine, Hx Seizures - topamax ....no seizures in years, Other Neuro Impairments/Disorders - MIGRAINES, EPILEPSY Psychiatric History: Reports: Hx Anxiety, Hx Depression Denies: Hx Panic Disorder - Cancer History Cancer Type, Location and Year: breast - Surgical History Surgery Procedure, Year, and Place: APPENDIX IN 2000; (1) C-SECT IN 2005. BILAT BREAST BIOPSIES 2005,2006 - Immunization History Date of Tetanus Vaccine: up to date per pt report Infectious Disease History: No Infectious Disease History: Denies: Hx Clostridium Difficile, Hx Hepatitis, Hx Human Immunodeficiency Virus (HIV), Hx of Known/Suspected MRSA, Hx Shingles, Hx Tuberculosis, Hx Known/ Suspected VRE, Hx Known/Suspected VRSA, History Other Infectious Disease, Traveled Outside the [place] in Last 30 Days - Family History Known Family History: Positive: Cardiac Disease, Hypertension - Social History Occupation: Unemployed Lives: Alone Alcohol Use: Occasionally Hx Substance Use: No Substance Use Type: Reports: None Hx Tobacco Use: Yes Smoking Status (MU): Heavy Every Day Tobacco Smoker Type: Cigarettes Amount Used/How Often: 1-1 1/2 ppd Length of Time of Smoking/Using Tobacco: 25 yrs Have You Smoked in the Last Year: Yes Review of Systems Negative: Fever, Chills Positive: Other - eye pain. Negative: Erythema Positive: Nasal Discharge - green . Negative: Sore Throat Positive: Chest Pain Positive: Cough - with green sputum. Negative: Shortness Of Breath Negative: Abdominal Pain, Vomiting, Nausea Positive: frequency - increased, incontinence. Negative: dysuria, hematuria Positive: Other - back pain, chronic L knee pain. Negative: Arthralgia, Myalgia , Edema Negative: Rash Neurological: Negative - dizziness All Other Systems Reviewed And Are Negative: Yes Physical Exam - Summary Physical Exam Summary: Constitutional: Well-developed, Well-nourished, Alert. (-) Distressed Skin: Warm, Dry HENT: Normocephalic; Atraumatic Eyes: Conjunctival injection Neck: Musculoskeletal ROM normal neck. (-) JVD, (-) Stridor, (-) Tracheal deviation Cardio: Rhythm regular, rate normal, Heart sounds normal; Intact distal pulses; The pedal pulses are 2+ and symmetric. Radial pulses are 2+ and symmetric. (-) Murmur Pulmonary/Chest wall: Effort normal. (-) Respiratory distress, (-) Wheezes, (-) Rales, coughing Abd: Soft, (-) Tenderness, (-) Distension, (-) Guarding, (-) Rebound Musculoskeletal: (-) Edema, LE strength 5/5 bilaterally Lymph: (-) Cervical adenopathy Neuro: Alert, Oriented x3 Psych: Mood and affect Normal Triage Information Reviewed: Yes Vital Signs On Initial Exam: Initial Vitals Temp Pulse Resp BP Pulse Ox 97.8 F 97 16 136/99 99 08/21/17 09:03 08/21/17 09:03 08/21/17 09:03 08/21/17 09:03 08/21/17 09:03 Vital Signs Reviewed: Yes Diagnostics - Vital Signs Vital Signs Temp Pulse Resp BP Pulse Ox 08/21/17 09:03 97.8 F 97 16 136/99 99 - Laboratory Result Diagrams: 08/21/17 09:37 08/21/17 11:11 Lab Statement: Any lab studies that have been ordered have been reviewed, and results considered in the medical decision making process. - Radiology CXR Xray Interpretation: No Acute Changes Radiology Interpretation Completed By: Radiologist - NO ACTIVE CARDIOPULMONARY DISEASE. ED physician has reviewed this report. - EKG 09:36 Cardiac Rate: NL EKG Rhythm: Sinus Rhythm - 93 BPM Re-Evaluation - Re-Evaluation First Eval Re-Evaluation Time: 12:18 Change: Improved - ED physician has discussed plan of discharge with the pt and the pt understands and agrees. Back Pain Course/Dx - Course Course Of Treatment: The pt has no sign or symptoms of cauda equina syndrome. CXR clear. The pt was given decadron in ED and prescribed doxycycline, inhaler, zyrtec and naproxen. The pt declined pelvic exam. Back pain and abd pain are subacute. Questionable muscular pain due to cough. No appy; ED physician does not suspect aortic. - Diagnoses Provider Diagnoses: Allergic conjunctivitis, Bronchitis, Lower back pain Discharge - Sign-Out/Discharge Documenting (check all that apply): Discharge/Admit/Transfer - Discharge - Discharge Plan Condition: Stable Disposition: HOME Prescriptions: Albuterol HFA INHALER* [Ventolin HFA Inhaler*] 1 - 2 puff INH Q4H PRN #1 mdi PRN Reason: Cough Cetirizine* [ZyrTEC 10 MG TAB*] 10 mg PO DAILY #14 tab DOXYcycline CAP(*) [DOXYcycline 100MG CAP(*)] 100 mg PO BID #14 cap Naproxen TAB* [Naprosyn 250 mg TAB*] 500 mg PO Q8H PRN #20 tab PRN Reason: Pain Scale 6-10 Patient Education Materials: Acute Bronchitis (ED), Low Back Strain (ED), Conjunctivitis (ED) Forms: *Work Release Referrals: Carrington Gaitan, WIPING RAG WASHER [Primary Care Provider] - 2 Days Additional Instructions: Return to the ED for new or worsening symptoms. The documentation as recorded by the Oscar lawrence Stephanie accurately reflects the service I personally performed and the decisions made by , Ketan Kim MD.
== END 2017-08-21 13:17 | disposition home or self-care (01) ==
LOC: ED 08:54
DX: M54.5 Low back pain (principal); J40 Bronchitis, not specified as acute or chronic; H10.10 Acute atopic conjunctivitis, unspecified eye; R10.9 Unspecified abdominal pain; F17.210 Nicotine dependence, cigarettes, uncomplicated; Z88.3 Allergy status to other anti-infective agents; Z88.8 Allergy status to other drugs, medicaments and biological substances
CPT/HCPCS: 36415; 71046; 80053; 81003; 83605; 84484; 84702; 85025; 93005; 99282; A9270-GY

== ENCOUNTER 2017-09-28 01:26 | Emergency (ER) | payer OTHER ==
--- NOTE | 2017-09-28 03:24 | ED ---
Throat Pain/Nasal Congestion - HPI Summary HPI Summary: Pt is a 47 y/o F w/ c/o right ear pain. She states ear pain onset 3 weeks ago but tonight pain worsened in the evening, which prompted ED visit. She states her right ear feels clogged and is causing pain. On triage, pain is described as sharp and throbbing and rated 10/10. She also notes right sided teeth pain and per triage states that teeth are in poor repair. She also reports chills but denies fever. She took Tylenol at 2200 and notes some relief. Pt reports allergies to levaqiun, moxifloxacin, quinolones and amoxicillin. - History of Current Complaint Chief Complaint: EDEarPain Time Seen by Provider: 09/28/17 02:40 Hx Obtained From: Patient Onset/Duration: Lasting Weeks - ear pain onset was 3 weeks ago, Worse Since - 2 hours ago pain worsened and prompted ED visit Severity: Severe - 10/10 Cough: None - Allergies/Home Medications Allergies/Adverse Reactions: Allergies Allergy/AdvReac Type Severity Reaction Status Date / Time amoxicillin Allergy Hives Verified 09/28/17 01:31 levofloxacin [From Levaquin] Allergy Anaphylatic Verified 09/28/17 01:31 Shock moxifloxacin [From Avelox] Allergy See Comment Verified 09/28/17 01:31 Quinolones Allergy Anaphylatic Verified 09/28/17 01:31 Shock PMH/Surg Hx/FS Hx/Imm Hx Endocrine/Hematology History: Reports: Hx Diabetes - pt does not take medication and does not know what type she has Denies: Hx Anticoagulant Therapy, Hx Thyroid Disease Cardiovascular History: Reports: Hx Coronary Artery Disease, Hx Hypercholesterolemia Denies: Hx Congestive Heart Failure, Hx Hypertension, Hx Pacemaker/ICD Respiratory History: Reports: Hx Asthma, Hx Chronic Obstructive Pulmonary Disease (COPD) GI History: Reports: Other GI Disorders - DX WITH ENDOMETRIOSIS Denies: Hx Ulcer History: Reports: Hx Kidney Stones Denies: Hx Renal Disease Musculoskeletal History: Reports: Other Musculoskeletal History - DDD; left knee partial ACL tear; left knee meniscus tear Sensory History: Reports: Hx Contacts or Glasses Denies: Hx Hearing Aid Opthamlomology History: Reports: Hx Contacts or Glasses Neurological History: Reports: Hx Migraine, Hx Seizures - topamax ....no seizures in years, Other Neuro Impairments/Disorders - MIGRAINES, EPILEPSY Psychiatric History: Reports: Hx Anxiety, Hx Depression Denies: Hx Panic Disorder - Cancer History Cancer Type, Location and Year: breast - Surgical History Surgery Procedure, Year, and Place: APPENDIX IN 2000; (1) C-SECT IN 2005. BILAT BREAST BIOPSIES 2005,2006 - Immunization History Date of Tetanus Vaccine: utd Date of Influenza Vaccine: none Infectious Disease History: No Infectious Disease History: Denies: Hx Clostridium Difficile, Hx Hepatitis, Hx Human Immunodeficiency Virus (HIV), Hx of Known/Suspected MRSA, Hx Shingles, Hx Tuberculosis, Hx Known/ Suspected VRE, Hx Known/Suspected VRSA, History Other Infectious Disease, Traveled Outside the [place] in Last 30 Days - Family History Known Family History: Positive: Cardiac Disease, Hypertension - Social History Alcohol Use: Occasionally Hx Substance Use: No Substance Use Type: Reports: None Hx Tobacco Use: Yes Smoking Status (MU): Heavy Every Day Tobacco Smoker Type: Cigarettes Amount Used/How Often: 1-1 1/2 ppd Length of Time of Smoking/Using Tobacco: 25 yrs Have You Smoked in the Last Year: Yes Review of Systems Positive: Chills. Negative: Fever Positive: Dental Pain - right sided , Other - right ear pain All Other Systems Reviewed And Are Negative: Yes Physical Exam - Summary Physical Exam Summary: Appearance: Well-appearing, Well-nourished, lying in bed comfortably Skin: Warm, dry, no obvious rash Eyes: sclera anicteric, no conjunctival pallor ENT: mucous membranes moist, pharynx appears normal. Right TM is red and opaque Neck: Supple, nontender Respiratory: Clear to auscultation, no signs of respiratory distress Cardiovascular: Normal S1, S2. No murmurs. Normal distal pulses in tibial and radial bilaterally. Abdomen: Soft, nontender, normal active bowel sounds present Musculoskeletal: Normal, Strength/ROM Intact Neurological: A&Ox3, awake and alert, mentation is normal, speech is fluent and appropriate Psychiatric: affect is normal, does not appear anxious or depressed Triage Information Reviewed: Yes Vital Signs On Initial Exam: Initial Vitals Temp Pulse Resp BP Pulse Ox 98 F 84 16 136/74 95 09/28/17 01:31 09/28/17 01:31 09/28/17 01:31 09/28/17 01:31 09/28/17 01:31 Vital Signs Reviewed: Yes Diagnostics - Vital Signs Vital Signs Temp Pulse Resp BP Pulse Ox 09/28/17 01:31 98 F 84 16 136/74 95 - Laboratory Lab Statement: Any lab studies that have been ordered have been reviewed, and results considered in the medical decision making process. EENT Course/Dx - Diagnoses Provider Diagnoses: Right otitis media with effusion Discharge - Sign-Out/Discharge Documenting (check all that apply): Patient Departure - Discharge Plan Condition: Good Disposition: HOME Prescriptions: Sulfamethox/Trimethoprim DS* [Bactrim DS 800/160 TAB*] 1 tab PO BID #20 tab Patient Education Materials: Ear Infection (ED) Referrals: Carrington Gaitan NP [Primary Care Provider] - - Billing Disposition and Condition Condition: GOOD Disposition: Home
[2017-09-28] MEDS ORDERED: Sulfamethox/Trimethoprim DS 800/160* TAB PO ONE (04:36)
[2017-09-28 04:51] VITALS: BP 132/90
== END 2017-09-28 04:50 | disposition home or self-care (01) ==
LOC: ED 01:26
DX: H65.91 Unspecified nonsuppurative otitis media, right ear (principal); F17.210 Nicotine dependence, cigarettes, uncomplicated; Z88.3 Allergy status to other anti-infective agents; Z88.8 Allergy status to other drugs, medicaments and biological substances
CPT/HCPCS: 99282; A9270-GY

== ENCOUNTER 2017-11-04 01:38 | Emergency (ER) | payer OTHER ==
[2017-11-04] MEDS ORDERED: Acetaminophen TAB* 325 MG PO ONE (03:23)
--- NOTE | 2017-11-04 03:25 | ED ---
HPI Chest Pain - HPI Summary HPI Summary: This patient is a 47 year old F presenting to [facility] with a chief complaint of intermittent L-sided CP radiating to back that began one week ago. The patient rates the pain 8/10 in severity. Symptoms aggravated by nothing. Symptoms alleviated by nothing. Patient reports head pain (intermittent and chronic), loses vision in L eye, ear ache, and bilateral LE edema. Patient denies fever, chills, sore throat, neck pain, abd pain, back pain, dysuria, rash, anxiety, and depression. - History of Current Complaint Chief Complaint: EDChestPainROMI Hx Obtained From: Patient Hx Last Menstrual Period: 12/30/14 Onset/Duration: Started Weeks Ago, Atraumatic, Still Present Timing: Constant Initial Severity: Severe Current Severity: Severe Pain Intensity: 8 Pain Scale Used: 0-10 Numeric Chest Pain Location: Left Lateral Chest Pain Radiates: Yes Chest Pain Radiates To:: Back Aggravating Factor(s): Nothing Alleviating Factor(s): Nothing Associated Signs and Symptoms: Positive: Other: - Positive head pain ( intermittent and chronic), loses vision in L eye, ear ache, and bilateral LE edema. Negative fever, chills, sore throat, neck pain, abd pain, back pain, dysuria, rash, anxiety, and depression. - Allergy/Home Medications Allergies/Adverse Reactions: Allergies Allergy/AdvReac Type Severity Reaction Status Date / Time amoxicillin Allergy Hives Verified 11/04/17 03:23 levofloxacin [From Levaquin] Allergy Anaphylatic Verified 11/04/17 03:23 Shock moxifloxacin [From Avelox] Allergy See Comment Verified 11/04/17 03:23 Quinolones Allergy Anaphylatic Verified 11/04/17 03:23 Shock PMH/Surg Hx/FS Hx/Imm Hx Previously Healthy: No Endocrine/Hematology History: Reports: Hx Diabetes - pt does not take medication and does not know what type she has Denies: Hx Anticoagulant Therapy, Hx Thyroid Disease Cardiovascular History: Reports: Hx Coronary Artery Disease, Hx Hypercholesterolemia Denies: Hx Congestive Heart Failure, Hx Hypertension, Hx Pacemaker/ICD Respiratory History: Reports: Hx Asthma, Hx Chronic Obstructive Pulmonary Disease (COPD) GI History: Reports: Other GI Disorders - DX WITH ENDOMETRIOSIS Denies: Hx Ulcer History: Reports: Hx Kidney Stones Denies: Hx Renal Disease Musculoskeletal History: Reports: Other Musculoskeletal History - DDD; left knee partial ACL tear; left knee meniscus tear Sensory History: Reports: Hx Contacts or Glasses Denies: Hx Hearing Aid Opthamlomology History: Reports: Hx Contacts or Glasses Neurological History: Reports: Hx Migraine, Hx Seizures - topamax ....no seizures in years, Other Neuro Impairments/Disorders - MIGRAINES, EPILEPSY Psychiatric History: Reports: Hx Anxiety, Hx Depression Denies: Hx Panic Disorder - Cancer History Cancer Type, Location and Year: breast - Surgical History Surgery Procedure, Year, and Place: APPENDIX IN 2000; (1) C-SECT IN 2005. BILAT BREAST BIOPSIES 2005,2006 - Immunization History Date of Tetanus Vaccine: utd Date of Influenza Vaccine: none Infectious Disease History: No Infectious Disease History: Denies: Hx Clostridium Difficile, Hx Hepatitis, Hx Human Immunodeficiency Virus (HIV), Hx of Known/Suspected MRSA, Hx Shingles, Hx Tuberculosis, Hx Known/ Suspected VRE, Hx Known/Suspected VRSA, History Other Infectious Disease, Traveled Outside the in Last 30 Days - Family History Known Family History: Positive: Cardiac Disease, Hypertension - Social History Occupation: Unemployed Lives: Alone Alcohol Use: Occasionally Hx Substance Use: No Substance Use Type: Reports: None Hx Tobacco Use: Yes Smoking Status (MU): Heavy Every Day Tobacco Smoker Type: Cigarettes Amount Used/How Often: 1-1 1/2 ppd Length of Time of Smoking/Using Tobacco: 25 yrs Have You Smoked in the Last Year: Yes Review of Systems Negative: Fever, Chills Positive: Other - Positive "loses vision" in L eye Positive: Ear Ache. Negative: Sore Throat Positive: Chest Pain Negative: Shortness Of Breath Negative: Abdominal Pain Negative: dysuria Positive: Edema, Other - Negative back pain and neck pain Negative: Rash Neurological: Other - Positive head pain Negative: Anxious, Depressed All Other Systems Reviewed And Are Negative: No Physical Exam - Summary Physical Exam Summary: Appearance: Alert, conversive, nontoxic appearing Skin: Warm, dry, no mottling, no rashes, no contusions HEENT: EOMI, PERRL, moist mucous membranes Neck: No masses on the neck, supple Respiratory: Clear to auscultation, breath sounds present, no rales, no rhonchi , no wheezes Cardiovascular: RRR, pulses are symmetrical in both lower and upper extremities. Reproducible chest wall pain Abdomen: Soft, non-tender Bowel Sounds: Present Musculoskeletal: No CVA tenderness, no obvious deformity, moving all extremities in a grossly normal manner Neurological: A&Ox3, CN II-XII Intact, moving all extremities symmetrically Psychiatric: Normal affect and mood Triage Information Reviewed: Yes Vital Signs On Initial Exam: Initial Vitals Temp Pulse Resp BP Pulse Ox 98.3 F 79 22 126/89 96 11/04/17 01:46 11/04/17 01:46 11/04/17 01:46 11/04/17 01:46 11/04/17 01:46 Vital Signs Reviewed: Yes Diagnostics - Vital Signs Vital Signs Temp Pulse Resp BP Pulse Ox 11/04/17 01:46 98.3 F 79 22 126/89 96 - Laboratory Result Diagrams: 11/04/17 04:00 11/04/17 04:00 Lab Statement: Any lab studies that have been ordered have been reviewed, and results considered in the medical decision making process. - Radiology CXR Radiology Interpretation Completed By: ED Physician - CXR reveals, per ED physician, widened medium mediastinum. - EKG 0209 Cardiac Rate: NL EKG Rhythm: Sinus Rhythm - 78 BPM Ectopy: None EKG Interpretation: Possible old inferior infarct Re-Evaluation - Re-Evaluation First Eval Re-Evaluation Time: 04:50 Change: Unchanged Comment: She deferred the CT because it makes her feel like she wants to vomit. She denied Zofran. We discussed a referral to a train control electronic technician. Patient reports she has COPD, and believes she has pneumonia. She denies a productive cough. No obvious pneumonia on CXR. We discussed antibiotics and she denied them. Pt was very rude at the end of her ED stay. We did 3 minutes of smoking cessation. Chest Pain Course/Dx - Course Course Of Treatment: This patient is a 47 year old F presenting to [facility] with a chief complaint of intermittent L-sided CP radiating to back that began one week ago. Physical Exam Findings: Reproducible chest wall pain. An EKG reveals nml sinus rhythm at 78 BPM and possible old inferior infarct. CXR reveals, per ED physician, widened medium mediastinum. Bloodwork obtained. In the ED course the patient was given acetaminophen. She deferred the CT because it makes her feel like she wants to vomit. She denied Zofran. We discussed a referral to a train control electronic technician. Patient reports she has COPD, and believes she has pneumonia. She denies a productive cough. No obvious pneumonia on CXR. We discussed antibiotics and she denied them. Pt was very rude at the end of her ED stay. We did 3 minutes of smoking cessation. Patient will be discharged with follow up from PCP. The patient is agreeable with this plan. - Diagnoses Provider Diagnoses: COPD (chronic obstructive pulmonary disease), Bronchitis, Chest pain Discharge - Sign-Out/Discharge Documenting (check all that apply): Patient Departure - Discharge home - Discharge Plan Condition: Stable Disposition: HOME Patient Education Materials: Acute Bronchitis (ED) Referrals: Carrington Gaitan NP [Primary Care Provider] - Additional Instructions: take all medications as previously instructed. please follow up with your primary care physician and train control electronic technician. use your inhalers as previously instructed. Attestations Scribe Attestation: This is melinda Hand documenting for attending Aminata Henderson MD. User Type: Provider with Scribe Provider Attestation: The documentation recorded by the scribe accurately reflects the service I personally performed and the decisions made by me.
[2017-11-04 04:14] LABS: ABS Basophils 0 10^3/ul (0-0.2); ABS Eosinophils 0.2 10^3/ul (0-0.6); ABS Lymphocytes 2.7 10^3/ul (1.0-4.8); ABS Monocytes 0.8 10^3/ul (0-0.8); ABS Neutrophils 5.9 10^3/ul (1.5-7.7); ABS Nucleated RBC 0 10^3/ul; Eosinophil % 2.5 % (0-6); Hematocrit 47 % (35-47); Mean Corpuscular HGB Conc 34 g/dl (31-36); Mean Corpuscular Hemoglobin 33 pg (27-31); Mean Corpuscular Volume 96 fL (80-97); Mean Platelet Volume 8.4 um3 (7.4-10.4); Nucleated Red Blood Cells % 0; Platelet Count 240 10^3/ul (150-450); Red Cell Distribution Width 16 % (10.5-15); White Blood Count 9.8 10^3/ul (3.5-10.8)
[2017-11-04 04:31] LABS: EGFR Non-African American 84.5 (>60)
[2017-11-04 05:40] VITALS: BP 153/100
--- NOTE | 2017-11-04 07:45 | RAD ---
HISTORY: chest pain COMPARISONS: The 2017 VIEWS: 1: frontal portable view of the chest at 3:48 AM FINDINGS: LINES AND TUBES: None. CARDIOMEDIASTINAL SILHOUETTE: The cardiomediastinal silhouette is normal for portable technique. PLEURA: The costophrenic angles are sharp. No pleural abnormalities are noted. LUNG PARENCHYMA: The lungs are clear. ABDOMEN: The upper abdomen is clear. There is no subphrenic gas. BONES AND SOFT TISSUES: No bone or soft tissue abnormalities are noted. IMPRESSION: NO ACTIVE CARDIOPULMONARY DISEASE. R1
== END 2017-11-04 05:25 | disposition home or self-care (01) ==
LOC: ED 01:38
DX: J44.9 Chronic obstructive pulmonary disease, unspecified (principal); R07.89 Other chest pain; R60.0 Localized edema; Z88.1 Allergy status to other antibiotic agents; Z88.0 Allergy status to penicillin; Z88.8 Allergy status to other drugs, medicaments and biological substances; Z82.49 Family history of ischemic heart disease and other diseases of the circulatory system; F17.210 Nicotine dependence, cigarettes, uncomplicated
CPT/HCPCS: 36415; 71045; 80053; 84484; 84702; 85025; 93005; 99283; A9270-GY

== ENCOUNTER 2017-12-27 10:31 | Emergency (ER) | payer OTHER ==
--- NOTE | 2017-12-27 10:45 | ED ---
Psychiatric Complaint - HPI Summary HPI Summary: 47 y/o female brought in by the police for psychotic behavior, according to police. Pt was not acting appropriately at her parent's house, per police. Pt states she was "ambushed by the police". Pt states "she doesn't know why she is here or why the police came to her house". Denies SI or HI. Pt reports some "family issues". - History Of Current Complaint Time Seen by Provider: 12/27/17 10:35 Hx Obtained From: Patient Hx Last Menstrual Period: 12/30/14 Aggravating Factor(s): Nothing Alleviating Factor(s): Nothing Associated Signs And Symptoms: Negative: Sleep Disturbance Has Suicidal: Denies: Thoughts, With A Plan Has Homicidal: Reports: Thoughts. Denies: With A Plan, Demonstrates Gesture - Allergies/Home Medications Allergies/Adverse Reactions: Allergies Allergy/AdvReac Type Severity Reaction Status Date / Time amoxicillin Allergy Hives Verified 12/27/17 11:31 levofloxacin [From Levaquin] Allergy Anaphylatic Verified 12/27/17 11:31 Shock moxifloxacin [From Avelox] Allergy See Comment Verified 12/27/17 11:31 Quinolones Allergy Anaphylatic Verified 12/27/17 11:31 Shock PMH/Surg Hx/FS Hx/Imm Hx Previously Healthy: No Endocrine/Hematology History: Reports: Hx Diabetes - pt does not take medication and does not know what type she has Denies: Hx Anticoagulant Therapy, Hx Thyroid Disease Cardiovascular History: Reports: Hx Coronary Artery Disease, Hx Hypercholesterolemia Denies: Hx Congestive Heart Failure, Hx Hypertension, Hx Pacemaker/ICD Respiratory History: Reports: Hx Asthma, Hx Chronic Obstructive Pulmonary Disease (COPD) GI History: Reports: Other GI Disorders - DX WITH ENDOMETRIOSIS Denies: Hx Ulcer History: Reports: Hx Kidney Stones Denies: Hx Renal Disease Musculoskeletal History: Reports: Other Musculoskeletal History - DDD; left knee partial ACL tear; left knee meniscus tear Sensory History: Reports: Hx Contacts or Glasses Denies: Hx Hearing Aid Opthamlomology History: Reports: Hx Contacts or Glasses Neurological History: Reports: Hx Migraine, Hx Seizures - topamax ....no seizures in years, Other Neuro Impairments/Disorders - MIGRAINES, EPILEPSY Psychiatric History: Reports: Hx Anxiety, Hx Depression Denies: Hx Panic Disorder - Cancer History Cancer Type, Location and Year: breast - Surgical History Surgery Procedure, Year, and Place: APPENDIX IN 2000; (1) C-SECT IN 2005. BILAT BREAST BIOPSIES 2005,2007 - Immunization History Date of Tetanus Vaccine: utd Date of Influenza Vaccine: none Infectious Disease History: Denies: Hx Clostridium Difficile, Hx Hepatitis, Hx Human Immunodeficiency Virus (HIV), Hx of Known/Suspected MRSA, Hx Shingles, Hx Tuberculosis, Hx Known/ Suspected VRE, Hx Known/Suspected VRSA, History Other Infectious Disease - Family History Known Family History: Positive: Cardiac Disease, Hypertension - Social History Alcohol Use: Occasionally Hx Substance Use: No Substance Use Type: Reports: None Hx Tobacco Use: Yes Smoking Status (MU): Heavy Every Day Tobacco Smoker Type: Cigarettes Amount Used/How Often: 1-1 1/2 ppd Length of Time of Smoking/Using Tobacco: 25 yrs Have You Smoked in the Last Year: Yes Review of Systems Constitutional: Negative Eyes: Negative ENT: Negative Cardiovascular: Negative Respiratory: Negative Gastrointestinal: Negative Genitourinary: Negative Musculoskeletal: Negative Skin: Negative Neurological: Negative Positive: Other - inappropriate, psychotic behavior at parent's house All Other Systems Reviewed And Are Negative: Yes Physical Exam - Summary Physical Exam Summary: VITAL SIGNS: Reviewed. GENERAL: Patient is a well-developed and nourished female who is lying comfortable in the stretcher. Patient is not in any acute respiratory distress. HEAD AND FACE: No signs of trauma. No ecchymosis, hematomas or skull depressions. No sinus tenderness. EYES: PERRLA, EOMI x 2, No injected conjunctiva, no nystagmus. EARS: Hearing grossly intact. Ear canals and tympanic membranes are within normal limits. MOUTH: Oropharynx within normal limits. NECK: Supple, trachea is midline, no adenopathy, no JVD, no carotid bruit, no c- spine tenderness, neck with full ROM. CHEST: Symmetric, no tenderness at palpation LUNGS: Clear to auscultation bilaterally. No wheezing or crackles. CVS: Regular rate and rhythm, S1 and S2 present, no murmurs or gallops appreciated. ABDOMEN: Soft, non-tender. No signs of distention. No rebound no guarding, and no masses palpated. Bowel sounds are normal. EXTREMITIES: FROM in all major joints, no edema, no cyanosis or clubbing. NEURO: Alert and oriented x 3. No acute neurological deficits. Speech is normal and follows commands. SKIN: Dry and warm PSYCH: Hyperactive, paranoid. Denies any suicidal thoughts or plan. No homicidal thoughts or plan. Triage Information Reviewed: Yes Vital Signs Reviewed: Yes Diagnostics - Laboratory Result Diagrams: 12/27/17 11:26 12/27/17 11:26 Lab Statement: Any lab studies that have been ordered have been reviewed, and results considered in the medical decision making process. Course/Dx - Course Assessment/Plan: 47 y/o female brought in by the police for psychotic behavior, according to police. Pt was not acting appropriately at her parent's house, per police. Pt states she was "ambushed by the police". Pt states "she doesn't know why she is here or why the police came to her house". Denies SI or HI. Pt reports some "family issues". Blood work w/o a significant abnormality. She is medically cleared. She is awaiting for a MHE. Patient is hemodynamically stable and A+O x 3. After being seen by Dr. Rivera the pt will be d/c home. - Differential Dx/Clinical Impression Differential Diagnosis/HQI/PQRI: Positive: Acute Psychosis, Anxiety, Depression Provider Diagnosis: Major depressive disorder Discharge - Sign-Out/Discharge Documenting (check all that apply): Patient Departure - Discharge Plan Condition: Stable Disposition: HOME Patient Education Materials: Depression (ED) Referrals: Carrington Gaitan NP [Primary Care Provider] - - Billing Disposition and Condition Condition: STABLE Disposition: Home - Attestation Statements Document Initiated by Scribe: Yes Documenting Scribe: All Fleming Provider For Whom Jerrellibe is Documenting (Include Credential): Marshall Roe MD Scribe Attestation: All Arnett, scribed for Marshall Roe MD on 12/27/17 at 1805. Scribe Documentation Reviewed: Yes Provider Attestation: The documentation as recorded by the All lawrence accurately reflects the service I personally performed and the decisions made by , Marshall Roe MD
[2017-12-27 11:34] LABS: Urine Appearance Cloudy; Urine Blood Negative (Negative); Urine Color Yellow; Urine Ketones Negative (Negative); Urine Protein 2+(100 mg/dL) (Negative); Urine Red Blood Cell Trace(0-2/hpf) (Absent); Urine Specific Gravity 1.026 (1.010-1.030); Urine Urobilinogen Negative (Negative); Urine White Blood Cell Trace(0-5/hpf) (Absent)
[2017-12-27 11:42] LABS: ABS Basophils 0 10^3/ul (0-0.2); ABS Eosinophils 0.2 10^3/ul (0-0.6); ABS Lymphocytes 1.9 10^3/ul (1.0-4.8); ABS Monocytes 0.8 10^3/ul (0-0.8); ABS Neutrophils 7.9 10^3/ul (1.5-7.7); ABS Nucleated RBC 0 10^3/ul; Eosinophil % 1.5 % (0-6); Hematocrit 54 % (35-47); Hemoglobin 18.5 g/dl (12.0-16.0); Lymphocyte % 17.6 % (25-47); Mean Corpuscular HGB Conc 34 g/dl (31-36); Mean Corpuscular Hemoglobin 33 pg (27-31); Mean Corpuscular Volume 97 fL (80-97); Mean Platelet Volume 8.5 um3 (7.4-10.4); Nucleated Red Blood Cells % 0.1; Platelet Count 278 10^3/ul (150-450); Red Blood Count 5.63 10^6/ul (4.00-5.40); Red Cell Distribution Width 16 % (10.5-15); White Blood Count 10.8 10^3/ul (3.5-10.8)
[2017-12-27] MEDS ORDERED: Ibuprofen TAB* 800 MG PO ONE (12:42)
[2017-12-27] MEDS ORDERED: Mouth Piece, Nicotine* 1 EACH CARTRIDGE INH PRN (15:03)
[2017-12-27] MEDS ORDERED: Nicotine Inhaler* 10 MG AMP INH ONE (15:03)
[2017-12-27 19:20] VITALS: BP 143/96
== END 2017-12-27 19:25 | disposition home or self-care (01) ==
LOC: ED 10:31 → EEVIPCON 10:31 → ED 19:25
DX: F32.9 Major depressive disorder, single episode, unspecified (principal); F17.210 Nicotine dependence, cigarettes, uncomplicated; G40.909 Epilepsy, unspecified, not intractable, without status epilepticus
CPT/HCPCS: 36415; 80053; 80307; 80320; 80329; 81003; 81015; 84443; 85025; 87086; 99283; A9270-GY; G0480

== ENCOUNTER → 2018-02-19 18:20 | Emergency (ER) | payer OTHER ==
[~2018-02-19 18:20] MED LIST: Albuterol 2.5 MG/3 ML NEB.SOL* (0.083%) INH ONE; Albuterol/Ipratropium NEB.SOL* Albuterol 2.5 MG/Ipratropium 0.5 MG 3 ML INH ONE; Ketorolac INJ* 30 MG/ML 1 ML VIAL IV PUSH ONE; NS 0.9% 1000 ML* 1,000 ML IV ONE; methylPREDNISolone 125 MG* 2 ML VIAL IV ONE
--- OUTSIDE RECORDS SUMMARY | 2018-02-19 19:10 | XMS REPORT | Continuity of Care Document ---
:1970 Author Organization [facility] Care Team Providers Name Role Phone KAYLIN BOONE Admitting Physician KAYLIN BOONE Attending Physician Allergies and Intolerances No Allergy Data in the System Medications No Known Medications Problems No Data in the system Procedures No data in the system Results No data in the system Social History Code Code System Social History Observation Description Dates Observed [id number] SNOMED CT Current Smoking Status Never smoker UNK AdministrativeGender Sex Assigned At Unknown Vital Signs No data in the system Goals Section No data in the system Health Concerns No data in the systemEncounter Diagnosis Date Code Code System Diagnosis Status Z53.21 ICD10 PROC&TX NOT CARRIED OUT PT LEAVE Active Advance Directives No Data in the System Family History No data in the system Functional Status No data in the system Immunizations No data in the system Medical Equipment No data in the system Mental Status No data in the system Assessment and Plan Assessments No data in the systemPlan Of Treatment No data in the systemPending Tests No data in the system Hospital Discharge Instructions No data in the system Reason for Visit Reason for Visit Cough
[2018-02-19 22:08] VITALS: BP 151/91
--- NOTE | 2018-02-19 23:05 | ED ---
HPI Chest Pain - HPI Summary HPI Summary: This patient is a 47 year old F brought in by EMS to [facility] with a chief complaint of constant CP that began at 1830. The patient rates the pain 8/10 in severity and describes intermittent radiation into the left shoulder and back. Patient reports a large amount if stress recently and a cough. The patient does not want any narcotic pain medication. She reports being sick since the last time she was in the ED in October. At that time the patient states she received a CXR by a female doctor, dx with PNA and a blood clot. She states this same doctor refused to give her abx. - History of Current Complaint Chief Complaint: EDGeneral Time Seen by Provider: 02/19/18 22:32 Hx Obtained From: Patient Hx Last Menstrual Period: 12/30/14 Onset/Duration: Started Hours Ago, Still Present Time of Onset: 18:30 Timing: Constant, Lasting Hours Initial Severity: Severe Current Severity: Severe Pain Intensity: 8 Pain Scale Used: 0-10 Numeric Chest Pain Location: Left Anterior Chest Pain Radiates: Yes Chest Pain Radiates To:: Back, Shoulder Associated Signs and Symptoms: Positive: Cough, Other: - stress - Allergy/Home Medications Allergies/Adverse Reactions: Allergies Allergy/AdvReac Type Severity Reaction Status Date / Time amoxicillin Allergy Hives Verified 12/27/17 11:31 levofloxacin [From Levaquin] Allergy Anaphylatic Verified 12/27/17 11:31 Shock moxifloxacin [From Avelox] Allergy See Comment Verified 12/27/17 11:31 Quinolones Allergy Anaphylatic Verified 12/27/17 11:31 Shock PMH/Surg Hx/FS Hx/Imm Hx Endocrine/Hematology History: Reports: Hx Diabetes - pt does not take medication and does not know what type she has Denies: Hx Anticoagulant Therapy, Hx Thyroid Disease Cardiovascular History: Reports: Hx Coronary Artery Disease, Hx Hypercholesterolemia Denies: Hx Congestive Heart Failure, Hx Hypertension, Hx Pacemaker/ICD Respiratory History: Reports: Hx Asthma, Hx Chronic Obstructive Pulmonary Disease (COPD) GI History: Reports: Other GI Disorders - DX WITH ENDOMETRIOSIS Denies: Hx Ulcer History: Reports: Hx Kidney Stones Denies: Hx Renal Disease Musculoskeletal History: Reports: Other Musculoskeletal History - DDD; left knee partial ACL tear; left knee meniscus tear Sensory History: Reports: Hx Contacts or Glasses Denies: Hx Hearing Aid Opthamlomology History: Reports: Hx Contacts or Glasses Neurological History: Reports: Hx Migraine, Hx Seizures - topamax ....no seizures in years, Other Neuro Impairments/Disorders - MIGRAINES, EPILEPSY Psychiatric History: Reports: Hx Anxiety, Hx Depression Denies: Hx Eating Disorder, Hx Panic Disorder, Hx of Violent Episodes Against Others - Cancer History Cancer Type, Location and Year: breast - Surgical History Surgery Procedure, Year, and Place: APPENDIX IN 2000; (1) C-SECT IN 2005. BILAT BREAST BIOPSIES 2005,2006 - Immunization History Date of Tetanus Vaccine: utd Date of Influenza Vaccine: none Infectious Disease History: No Infectious Disease History: Denies: Hx Clostridium Difficile, Hx Hepatitis, Hx Human Immunodeficiency Virus (HIV), Hx of Known/Suspected MRSA, Hx Shingles, Hx Tuberculosis, Hx Known/ Suspected VRE, Hx Known/Suspected VRSA, History Other Infectious Disease, Traveled Outside the [place] in Last 30 Days - Family History Known Family History: Positive: Cardiac Disease, Hypertension - Social History Alcohol Use: Occasionally Hx Substance Use: No Substance Use Type: Reports: None Hx Tobacco Use: Yes Smoking Status (MU): Heavy Every Day Tobacco Smoker Type: Cigarettes Amount Used/How Often: 1-1 1/2 ppd Length of Time of Smoking/Using Tobacco: 25 yrs Have You Smoked in the Last Year: Yes Review of Systems Negative: Fever Positive: Chest Pain Positive: Cough Positive: Other - stress All Other Systems Reviewed And Are Negative: Yes Physical Exam - Summary Physical Exam Summary: VITAL SIGNS: Reviewed. GENERAL: Patient is a well-developed and nourished female who is lying comfortable in the stretcher. Patient is not in any acute respiratory distress. HEAD AND FACE: No signs of trauma. No ecchymosis, hematomas or skull depressions. No sinus tenderness. EYES: PERRLA, EOMI x 2, No injected conjunctiva, no nystagmus. EARS: Hearing grossly intact. Ear canals and tympanic membranes are within normal limits. MOUTH: Oropharynx within normal limits. NECK: Supple, trachea is midline, no adenopathy, no JVD, no carotid bruit, no c- spine tenderness, neck with full ROM. CHEST: Symmetric, TTP at left chest wall LUNGS: Clear to auscultation bilaterally. No wheezing or crackles. CVS: Regular rate and rhythm, S1 and S2 present, no murmurs or gallops appreciated. ABDOMEN: Soft, non-tender. No signs of distention. No rebound no guarding, and no masses palpated. Bowel sounds are normal. EXTREMITIES: FROM in all major joints, no edema, no cyanosis or clubbing. NEURO: Alert and oriented x 3. No acute neurological deficits. Speech is normal and follows commands. SKIN: Dry and warm Triage Information Reviewed: Yes Vital Signs On Initial Exam: Initial Vitals Temp Pulse Resp BP Pulse Ox 97.6 F 97 18 134/97 100 02/19/18 18:23 02/19/18 18:23 02/19/18 18:23 02/19/18 18:23 02/19/18 18:23 Vital Signs Reviewed: Yes Diagnostics - Vital Signs Vital Signs Temp Pulse Resp BP Pulse Ox 02/19/18 22:05 98.2 F 100 16 151/91 96 02/19/18 18:23 97.6 F 97 18 134/97 100 - Laboratory Lab Statement: Any lab studies that have been ordered have been reviewed, and results considered in the medical decision making process. - EKG 2224 Cardiac Rate: NL EKG Rhythm: Sinus Rhythm - at 87 bpm Summary of EKG Findings: LAD, poor R wave progression Re-Evaluation - Re-Evaluation First Eval Re-Evaluation Time: 22:55 Change: Worse Comment: The patient has her iPhone and is video recording staff. When asked to stop she is refusing. She has been rude to staff throughout the visit and it seems to be escalating. Chest Pain Course/Dx - Course Assessment/Plan: this patient is a 47 year old F brought in by EMS to [facility] with a chief complaint of constant CP that began at 1830. The patient rates the pain 8/10 in severity and describes intermittent radiation into the left shoulder and back. Patient reports a large amount if stress recently and a cough. The patient does not want any narcotic pain medication. She reports being sick since the last time she was in the ED in October. At that time the patient states she received a CXR by a female doctor, dx with PNA and a blood clot. She states this same doctor refused to give her abx. An EKG reveals sinus 87 LAD, poor R wave progression. The patient eloped at 2305 after being rude to the staff and verbally abusive. - Diagnoses Provider Diagnoses: Eloped from emergency department, Chest pain Discharge - Sign-Out/Discharge Documenting (check all that apply): Patient Departure - eloped at 2305 - Discharge Plan Condition: Fair Disposition: ELOPEMENT Referrals: No Primary Care Phys,NOPCP [Primary Care Provider] - - Attestation Statements Document Initiated by Scribe: Yes Documenting Scribe: Elieser Rai Provider For Whom Scribe is Documenting (Include Credential): Sugey Leblanc MD Scribe Attestation: IElieser , scribed for Sugey Leblanc MD on 02/19/18 at 2309. Status of Scribe Document: Ready
== END | disposition left against medical advice (07) ==
LOC: ED 18:20
DX: R07.89 Other chest pain (principal); R05 Cough; G40.909 Epilepsy, unspecified, not intractable, without status epilepticus; Z82.49 Family history of ischemic heart disease and other diseases of the circulatory system; Z88.1 Allergy status to other antibiotic agents; Z88.0 Allergy status to penicillin; F17.210 Nicotine dependence, cigarettes, uncomplicated
CPT/HCPCS: 93005; 99282

== ENCOUNTER 2018-05-22 06:50 | Emergency (ER) | payer OTHER ==
[2018-05-22 08:20] VITALS: BP 120/74
--- NOTE | 2018-05-22 08:29 | ED ---
Complex/Multi-Sys Presentation - HPI Summary HPI Summary: Patient is a 48yo F presenting to the ED with request for a sandwhich and a warm place to stay. She states she has been without heat in her trailer 2 days. She states she is to call to sleep there anymore. She is requesting a sandwich on arrival. She states she has also been coughing for the past 2 days , sometimes with production. She states she is cold and is unable to return to her trailer, and is requesting to stay here today. She offers no other complaints. - History Of Current Complaint Chief Complaint: EDGeneral Time Seen by Provider: 05/22/18 07:12 Hx Obtained From: Patient Onset/Duration: Sudden Onset Timing: Constant Severity Currently: None Severity Initially: Mild - Allergies/Home Medications Allergies/Adverse Reactions: Allergies Allergy/AdvReac Type Severity Reaction Status Date / Time amoxicillin Allergy Hives Verified 05/22/18 07:06 levofloxacin [From Levaquin] Allergy Anaphylatic Verified 05/22/18 07:06 Shock moxifloxacin [From Avelox] Allergy See Comment Verified 05/22/18 07:06 Quinolones Allergy Anaphylatic Verified 05/22/18 07:06 Shock PMH/Surg Hx/FS Hx/Imm Hx Previously Healthy: Yes Endocrine/Hematology History: Reports: Hx Diabetes - pt does not take medication and does not know what type she has Denies: Hx Anticoagulant Therapy, Hx Thyroid Disease Cardiovascular History: Reports: Hx Coronary Artery Disease, Hx Hypercholesterolemia Denies: Hx Congestive Heart Failure, Hx Hypertension, Hx Pacemaker/ICD Respiratory History: Reports: Hx Asthma, Hx Chronic Obstructive Pulmonary Disease (COPD) GI History: Reports: Other GI Disorders - DX WITH ENDOMETRIOSIS Denies: Hx Ulcer History: Reports: Hx Kidney Stones Denies: Hx Renal Disease Musculoskeletal History: Reports: Other Musculoskeletal History - DDD; left knee partial ACL tear; left knee meniscus tear Sensory History: Reports: Hx Contacts or Glasses Denies: Hx Hearing Aid Opthamlomology History: Reports: Hx Contacts or Glasses Neurological History: Reports: Hx Migraine, Hx Seizures - topamax ....no seizures in years, Other Neuro Impairments/Disorders - MIGRAINES, EPILEPSY Psychiatric History: Reports: Hx Anxiety, Hx Depression Denies: Hx Eating Disorder, Hx Panic Disorder, Hx of Violent Episodes Against Others - Cancer History Cancer Type, Location and Year: breast - Surgical History Surgery Procedure, Year, and Place: APPENDIX IN 2000; (1) C-SECT IN 2005. BILAT BREAST BIOPSIES 2005,2006 - Immunization History Date of Tetanus Vaccine: utd Date of Influenza Vaccine: none Hx Pertussis Vaccination: No Immunizations Up to Date: Yes Infectious Disease History: No Infectious Disease History: Denies: Hx Clostridium Difficile, Hx Hepatitis, Hx Human Immunodeficiency Virus (HIV), Hx of Known/Suspected MRSA, Hx Shingles, Hx Tuberculosis, Hx Known/ Suspected VRE, Hx Known/Suspected VRSA, History Other Infectious Disease, Traveled Outside the [place] in Last 30 Days - Family History Known Family History: Positive: Cardiac Disease, Hypertension - Social History Occupation: Unemployed Lives: Alone Alcohol Use: Occasionally Hx Substance Use: No Substance Use Type: Reports: None Hx Tobacco Use: Yes Smoking Status (MU): Heavy Every Day Tobacco Smoker Type: Cigarettes Amount Used/How Often: 1-1 1/2 ppd Length of Time of Smoking/Using Tobacco: 25 yrs Have You Smoked in the Last Year: Yes Review of Systems Positive: Chills. Negative: Fever, Fatigue, Skin Diaphoresis Negative: Diplopia, Drainage Negative: Sore Throat, Ear Ache, Nasal Discharge Negative: Palpitations, Chest Pain Positive: Cough Negative: Abdominal Pain, Vomiting, Diarrhea Genitourinary: Negative Positive: no symptoms reported, see HPI Positive: Myalgia - diffuse d/t cold. Negative: Arthralgia, Decreased ROM Negative: Rash, Bruising Neurological: Negative All Other Systems Reviewed And Are Negative: Yes Physical Exam Triage Information Reviewed: Yes Vital Signs On Initial Exam: Initial Vitals BP 145/103 05/22/18 06:57 Vital Signs Reviewed: Yes Appearance: Positive: Well-Appearing, Well-Nourished Skin: Positive: Warm, Skin Color Reflects Adequate Perfusion Head/Face: Positive: Normal Head/Face Inspection Eyes: Positive: EOMI, JOSEPH, Conjunctiva Clear Neck: Positive: Supple, No Lymphadenopathy Respiratory/Lung Sounds: Positive: Clear to Auscultation, Breath Sounds Present. Negative: Rales, Rhonchi, Tracheal Deviation, Wheezes, Unable to speak in full sentences Cardiovascular: Positive: RRR, Bradycardia Musculoskeletal: Positive: Normal, Strength/ROM Intact Neurological: Positive: Sensory/Motor Intact, Alert, Oriented to Person Place, Time, Speech Normal Psychiatric: Positive: Normal, Affect/Mood Appropriate AVPU Assessment: Alert Diagnostics - Vital Signs Vital Signs Temp Pulse Resp BP Pulse Ox 05/22/18 08:20 97.9 F 116 17 120/74 96 05/22/18 08:18 120/74 05/22/18 07:01 98.2 F 111 14 145/103 100 05/22/18 06:57 145/103 - Laboratory Lab Results: Lab Results 05/22/18 Range/Units 07:10 POC Glucose (mg/dL) 108 H (70-100) mg/dL Lab Statement: Any lab studies that have been ordered have been reviewed, and results considered in the medical decision making process. Complex Multi-Symp Course/Dx Course Of Treatment: During the course of treatment, the patient is given a sandwhich a blankets on arrival. VS stable. She states she feels her glucose may be off as well d/t her symptoms of being cold x 2 days. She has been coughing as well. Denies other concerns or complaints. On physical examination , patient appears well and VS stable. Lungs CTA, RRR. No abdominal pain. Patient is eating and drinking well. I have offered to call social work, however she states she does not want "adult protective" involved. Glucose obtained which is 108. On reexamination, patient states she is upset as no one checked her for frostbite. I then asked the patient if she is having any numbness, tingling or pain throughout. To this, she denies any. She is also at this point upset I have not diagnosed her with bronchitis and given her an antibiotic. I have explained to the patient, her lungs were clear and at this point I do not believe she needs an antibiotic as her vital signs are otherwise stable. She is upset to this and starts packing her bags and leaves. She does sign her discharge paperwork. I have given her information for DSS so she is able to follow up and secure housing. - Diagnoses Differential Diagnoses/HQI/PQRI: Metabolic Abnormality, Other - diabetes issue, housing issue, cold, cough Provider Diagnoses: Housing lack, Lack of food Discharge - Sign-Out/Discharge Documenting (check all that apply): Patient Departure Patient Received Moderate/Deep Sedation with Procedure: No - Discharge Plan Condition: Stable Disposition: HOME Referrals: No Primary Care Phys,NOPCP [Primary Care Provider] - Additional Instructions: You are diagnosed with housing issue and will need to secure housing d/t the weather I have given you information. Please call: Dept of [employer] [address] [place] [address] This should allow you to secure housing - Billing Disposition and Condition Condition: STABLE Disposition: Home
== END 2018-05-22 08:20 | disposition home or self-care (01) ==
LOC: ED 06:50
DX: Z59.1 Inadequate housing (principal); Z59.4 Lack of adequate food; R05 Cough; R68.83 Chills (without fever); E11.9 Type 2 diabetes mellitus without complications; G40.909 Epilepsy, unspecified, not intractable, without status epilepticus; Z88.1 Allergy status to other antibiotic agents; Z88.0 Allergy status to penicillin; Z82.49 Family history of ischemic heart disease and other diseases of the circulatory system; F17.200 Nicotine dependence, unspecified, uncomplicated
CPT/HCPCS: 99282

== ENCOUNTER 2018-06-12 10:00 | Emergency (ER) | payer OTHER ==
[2018-06-12] MEDS ORDERED: Aspirin 81 mg CHEW TAB* 81 MG TAB.CHEW PO ONE (11:05)
[2018-06-12 11:32] LABS: Influenza A Molecular NEGATIVE (Negative); Influenza B Molecular NEGATIVE (Negative)
--- NOTE | 2018-06-12 11:52 | ED ---
Influenza-Like Illness - HPI Summary HPI Summary: A 48 y/o female presents to [facility] with a chief complaint of flu-like symptoms for the past week. She reports an itchy throat, cough, and left sided chest pain. At triage she rated her pain as a 10/10 in severity. She also reports a low grade fever and leg swelling. She claims that she has a Hx of DM, but she doesnt take medications, claiming that she controls her DM with her diet. She is a former smoker, admits to rare EtOH use, and no drug use. She reports that she has a Hx of mild asthma and is in the beginning stages of COPD. She claims that she was once told that she had a severe heart condition, but upon follow up she was told that she does not have a heart condition. Her last stress test was in 2014. Vital signs while in room HR: 99bpm, O2 Sat: 96. - History of Current Complaint Chief Complaint: EDFluSymptoms Time Seen by Provider: 06/12/18 10:36 Hx Obtained From: Patient Onset/Duration: Sudden Onset, Lasting Days, Still Present Severity: Severe Associated Signs & Symptoms: Fever - 99 at triage, Pt reported low grade fever, Cough, Sore Throat - Allergy/Home Medications Allergies/Adverse Reactions: Allergies Allergy/AdvReac Type Severity Reaction Status Date / Time amoxicillin Allergy Hives Verified 05/22/18 07:06 levofloxacin [From Levaquin] Allergy Anaphylatic Verified 05/22/18 07:06 Shock moxifloxacin [From Avelox] Allergy See Comment Verified 05/22/18 07:06 Quinolones Allergy Anaphylatic Verified 05/22/18 07:06 Shock PMH/Surg Hx/FS Hx/Imm Hx Endocrine/Hematology History: Reports: Hx Diabetes - pt does not take medication and does not know what type she has Denies: Hx Anticoagulant Therapy, Hx Thyroid Disease Cardiovascular History: Reports: Hx Coronary Artery Disease, Hx Hypercholesterolemia Denies: Hx Congestive Heart Failure, Hx Hypertension, Hx Pacemaker/ICD Respiratory History: Reports: Hx Asthma, Hx Chronic Obstructive Pulmonary Disease (COPD) GI History: Reports: Other GI Disorders - DX WITH ENDOMETRIOSIS Denies: Hx Ulcer History: Reports: Hx Kidney Stones Denies: Hx Renal Disease Musculoskeletal History: Reports: Other Musculoskeletal History - DDD; left knee partial ACL tear; left knee meniscus tear Sensory History: Reports: Hx Contacts or Glasses Denies: Hx Hearing Aid Opthamlomology History: Reports: Hx Contacts or Glasses Neurological History: Reports: Hx Migraine, Hx Seizures - topamax ....no seizures in years, Other Neuro Impairments/Disorders - MIGRAINES, EPILEPSY Psychiatric History: Reports: Hx Anxiety, Hx Depression Denies: Hx Eating Disorder, Hx Panic Disorder, Hx of Violent Episodes Against Others - Cancer History Cancer Type, Location and Year: breast - Surgical History Surgery Procedure, Year, and Place: APPENDIX IN 2000; (1) C-SECT IN 2005. BILAT BREAST BIOPSIES 2005,2006 - Immunization History Date of Tetanus Vaccine: utd Date of Influenza Vaccine: none Infectious Disease History: No Infectious Disease History: Denies: Hx Clostridium Difficile, Hx Hepatitis, Hx Human Immunodeficiency Virus (HIV), Hx of Known/Suspected MRSA, Hx Shingles, Hx Tuberculosis, Hx Known/ Suspected VRE, Hx Known/Suspected VRSA, History Other Infectious Disease, Traveled Outside the [place] in Last 30 Days - Family History Known Family History: Positive: Cardiac Disease, Hypertension - Social History Alcohol Use: Rare Hx Substance Use: No Substance Use Type: Reports: None Hx Tobacco Use: Yes Smoking Status (MU): Former Smoker Type: Cigarettes Amount Used/How Often: 1-1 1/2 ppd Length of Time of Smoking/Using Tobacco: 25 yrs Have You Smoked in the Last Year: Yes Review of Systems Positive: Fever - 99 at triage, Pt reports low grade fever Positive: Sore Throat Positive: Chest Pain Positive: Cough All Other Systems Reviewed And Are Negative: Yes Physical Exam - Summary Physical Exam Summary: Appearance: Well appearing, no pain distress Skin: warm, dry, reflects adequate perfusion Head/face: normal Eyes: EOMI, JOSEPH ENT: Erythematous pharynx Neck: supple, non-tender Respiratory: CTA, breath sounds present Cardiovascular: RRR, pulses symmetrical Abdomen: non-tender, soft Musculoskeletal: normal, strength/ROM intact Neuro: normal, sensory motor intact, A&Ox3 Triage Information Reviewed: Yes Vital Signs On Initial Exam: Initial Vitals Temp Pulse Resp BP Pulse Ox 99 F 108 18 126/99 97 06/12/18 10:10 06/12/18 10:10 06/12/18 10:10 06/12/18 10:10 06/12/18 10:10 Vital Signs Reviewed: Yes Diagnostics - Vital Signs Vital Signs Temp Pulse Resp BP Pulse Ox 06/12/18 10:10 99 F 108 18 126/99 97 - Laboratory Lab Results: Lab Results 06/12/18 Range/Units 11:20 Influenza A (Rapid) Negative (Negative) Influenza B (Rapid) Negative (Negative) Result Diagrams: 06/12/18 12:06 06/12/18 12:06 Lab Statement: Any lab studies that have been ordered have been reviewed, and results considered in the medical decision making process. - Radiology CXR Radiology Interpretation Completed By: Radiologist Summary of Radiographic Findings: No active cardiopulmonary disease is noted. ED physician has reviewed this imaging report. - EKG 11:30 Cardiac Rate: Tachycardia - 103 bpm EKG Rhythm: Sinus Tachycardia Summary of EKG Findings: Sinus tachycardia at 103 bpm, no STEMI Re-Evaluation - Re-Evaluation First Eval Re-Evaluation Time: 14:14 Change: Improved Comment: Discussed results and plan for discharge Flu Symptom Course/Dx - Course Course Of Treatment: A 48 y/o female presents to [facility] with a chief complaint of flu-like symptoms for the past week. She reports an itchy throat, cough, and left sided chest pain. The physical exam revealed an erythematous pharynx. CXR impression: No active cardiopulmonary disease is noted. Bloodwork obtained. The patient tested negative for Influenza A and Influenza B. The patient will be discharged with a prescription for Motrin and follow up with her PCP. Strict return precautions were given. The patient is agreeable with this plan. - Diagnoses Differential Diagnosis/HQI/PQRI: Positive: Bronchitis, Influenza, Pneumonia, Upper Respiratory Infection Provider Diagnoses: URI (upper respiratory infection), Sore throat Discharge - Sign-Out/Discharge Documenting (check all that apply): Patient Departure - DC Patient Received Moderate/Deep Sedation with Procedure: No - Discharge Plan Condition: Stable Disposition: HOME Prescriptions: Ibuprofen TAB* [Motrin TAB* 600 MG] 600 mg PO Q8H PRN #15 tab MDD 3 PRN Reason: Pain Patient Education Materials: Upper Respiratory Infection (DC) Referrals: [facility] REFERRAL [Outside] - 3 Days Additional Instructions: Return to the ED if you experience any new or worsening symptoms - Billing Disposition and Condition Condition: STABLE Disposition: Home - Attestation Statements Document Initiated by Scribe: Yes Documenting Scribe: Jordin Spence Provider For Whom Scribe is Documenting (Include Credential): Alverto Mayers MD Scribe Attestation: I, Jordin Spence, scribed for Alverto Mayers MD on 06/12/18 at 1436. Scribe Documentation Reviewed: Yes Provider Attestation: The documentation as recorded by the scribe, Jordin Spence accurately reflects the service I personally performed and the decisions made by me, Alverto Mayers MD Status of Scribe Document: Viewed
[2018-06-12 12:35] LABS: Albumin 3.8 g/dL (3.2-5.2); Albumin/Globulin Ratio 1.4 (1-3); BUN/Creatinine Ratio 16.9 (8-20); Calcium 9.4 mg/dL (8.6-10.3); EGFR African American 106.8 (>60); EGFR Non-African American 88.2 (>60); Globulin 2.8 g/dL (2-4); Magnesium 1.9 mg/dL (1.9-2.7); Potassium 4.5 mmol/L (3.5-5.0); Total Bilirubin 0.3 mg/dL (0.2-1.0); Total Protein 6.6 g/dL (6.4-8.9)
[2018-06-12 12:44] LABS: ABS Basophils 0.1 10^3/ul (0-0.2); ABS Eosinophils 0.1 10^3/ul (0-0.6); ABS Lymphocytes 1.1 10^3/ul (1.0-4.8); ABS Monocytes 0.8 10^3/ul (0-0.8); ABS Neutrophils 3.6 10^3/ul (1.5-7.7); ABS Nucleated RBC 0 10^3/ul; Eosinophil % 1.7 %; Hematocrit 50 % (33-41); Hemoglobin 16.8 g/dL (12.0-16.0); Lymphocyte % 18.9 %; Mean Corpuscular HGB Conc 34 g/dL (31-36); Mean Corpuscular Hemoglobin 33 pg (27-31); Mean Corpuscular Volume 98 fL (80-97); Nucleated Red Blood Cells % 0.1; Platelet Count 223 10^3/uL (150-450); Red Blood Count 5.11 10^6 /uL (3.70-4.87); Red Cell Distribution Width 15 % (10.5-15); White Blood Count 5.8 10^3/uL (3.5-10.8)
[2018-06-12 12:53] LABS: Activated Partial Thrombo Time 33.7 seconds (26.0-36.3); INR 0.86 (0.77-1.02)
[2018-06-12 15:26] VITALS: BP 122/79
== END 2018-06-12 15:24 | disposition home or self-care (01) ==
LOC: ED 10:00
DX: J06.9 Acute upper respiratory infection, unspecified (principal); J02.9 Acute pharyngitis, unspecified; R50.9 Fever, unspecified; Z88.0 Allergy status to penicillin; I25.10 Atherosclerotic heart disease of native coronary artery without angina pectoris; R07.9 Chest pain, unspecified; Z87.891 Personal history of nicotine dependence
CPT/HCPCS: 36415; 71046; 80053; 83605; 83735; 83880; 84484; 85025; 85610; 85730; 87651; 93005; 99283

== ENCOUNTER 2018-08-26 17:16 | Emergency (ER) | payer OTHER ==
[2018-08-26] MEDS ORDERED: oxyCODONE/Acetamin 5/325 MG* TAB PO ONE (17:45)
--- NOTE | 2018-08-26 17:54 | ED ---
Lower Extremity - HPI Summary HPI Summary: 48-year-old female presents with bilateral knee pain after fall today. She states her chronic knee issues on the left. She states that she fell onto her patella. She has abrasion noted on the right knee. Right knee is in more pain than left. denies any ankle or hip pain. She also denies any increasing swelling to her left leg for the past couple weeks. She denies any chest or shortness breath. She denies any numbness or tingling. She states it feels like her right knee is unstable. - History of Current Complaint Chief Complaint: EDExtremityLower Stated Complaint: KNEE PAIN AFTER FALL PER EMS Time Seen by Provider: 08/26/18 17:34 Hx Last Menstrual Period: 12/30/14 Pain Intensity: 10 - Allergies/Home Medications Allergies/Adverse Reactions: Allergies Allergy/AdvReac Type Severity Reaction Status Date / Time amoxicillin Allergy Hives Verified 05/22/18 07:06 levofloxacin [From Levaquin] Allergy Anaphylatic Verified 05/22/18 07:06 Shock moxifloxacin [From Avelox] Allergy See Comment Verified 05/22/18 07:06 Quinolones Allergy Anaphylatic Verified 05/22/18 07:06 Shock PMH/Surg Hx/FS Hx/Imm Hx Endocrine/Hematology History: Reports: Hx Diabetes - pt does not take medication and does not know what type she has Denies: Hx Anticoagulant Therapy, Hx Thyroid Disease Cardiovascular History: Reports: Hx Coronary Artery Disease, Hx Hypercholesterolemia Denies: Hx Congestive Heart Failure, Hx Hypertension, Hx Pacemaker/ICD Respiratory History: Reports: Hx Asthma, Hx Chronic Obstructive Pulmonary Disease (COPD) GI History: Reports: Other GI Disorders - DX WITH ENDOMETRIOSIS Denies: Hx Ulcer History: Reports: Hx Kidney Stones Denies: Hx Renal Disease Musculoskeletal History: Reports: Other Musculoskeletal History - DDD; left knee partial ACL tear; left knee meniscus tear Sensory History: Reports: Hx Contacts or Glasses Denies: Hx Hearing Aid Opthamlomology History: Reports: Hx Contacts or Glasses Neurological History: Reports: Hx Migraine, Hx Seizures - topamax ....no seizures in years, Other Neuro Impairments/Disorders - MIGRAINES, EPILEPSY Psychiatric History: Reports: Hx Anxiety, Hx Depression Denies: Hx Eating Disorder, Hx Panic Disorder, Hx of Violent Episodes Against Others - Cancer History Cancer Type, Location and Year: breast - Surgical History Surgery Procedure, Year, and Place: APPENDIX IN 2000; (1) C-SECT IN 2005. BILAT BREAST BIOPSIES 2005,2007 - Immunization History Date of Tetanus Vaccine: utd Date of Influenza Vaccine: none Infectious Disease History: No Infectious Disease History: Denies: Hx Clostridium Difficile, Hx Hepatitis, Hx Human Immunodeficiency Virus (HIV), Hx of Known/Suspected MRSA, Hx Shingles, Hx Tuberculosis, Hx Known/ Suspected VRE, Hx Known/Suspected VRSA, History Other Infectious Disease, Traveled Outside the [place] in Last 30 Days - Family History Known Family History: Positive: Cardiac Disease, Hypertension - Social History Alcohol Use: Rare Hx Substance Use: No Substance Use Type: Reports: None Hx Tobacco Use: Yes Smoking Status (MU): Former Smoker Type: Cigarettes Amount Used/How Often: 1-1 1/2 ppd Length of Time of Smoking/Using Tobacco: 25 yrs Have You Smoked in the Last Year: Yes Review of Systems Negative: Fever Negative: Chest Pain Negative: Shortness Of Breath Positive: Myalgia - knee pain All Other Systems Reviewed And Are Negative: Yes Physical Exam Triage Information Reviewed: Yes Vital Signs On Initial Exam: Initial Vitals Temp Pulse Resp BP Pulse Ox 98 F 95 16 148/80 98 08/26/18 17:32 08/26/18 17:32 08/26/18 17:32 08/26/18 17:32 08/26/18 17:32 Vital Signs Reviewed: Yes Appearance: Positive: Well-Appearing Skin: Positive: Warm, Dry, Other - abrasions to right knee Head/Face: Positive: Normal Head/Face Inspection Eyes: Positive: Normal, Conjunctiva Clear ENT: Positive: Pharynx normal Respiratory/Lung Sounds: Positive: Clear to Auscultation, Breath Sounds Present Cardiovascular: Positive: Normal, RRR Musculoskeletal: Positive: Limited @ - right knee, Other - edema to left leg, tenderness over right patella, good pulses Neurological: Positive: Normal Psychiatric: Positive: Normal Diagnostics - Vital Signs Vital Signs Temp Pulse Resp BP Pulse Ox 08/26/18 17:32 98 F 95 16 148/80 98 - Laboratory Lab Statement: Any lab studies that have been ordered have been reviewed, and results considered in the medical decision making process. - Radiology knee bilateral Radiology Interpretation Completed By: ED Physician Summary of Radiographic Findings: no fracture - Ultrasound No standard instances Ultrasound Interpretation Completed By: Radiologist Summary of Ultrasound Findings: IMPRESSION: No evidence of DVT in the left leg. Lower Extremity Course/Dx - Course Course Of Treatment: 48-year-old female presents with bilateral knee pain after fall today. She states her chronic knee issues on the left. She states that she fell onto her patella. She has abrasion noted on the right knee. Right knee is in more pain than left. denies any ankle or hip pain. She also denies any increasing swelling to her left leg for the past couple weeks. She denies any chest or shortness breath. She denies any numbness or tingling. She states it feels like her right knee is unstable. On exam has abrasion to right knee. has tenderness over right patella. Neurovascular intact. X-ray preliminary read as no fracture. Offered to do immobilizer and patient declined as has brace at home. Told to keep abrasion clean and apply topical antibiotics and warned if develop any signs of infection to return. Ultrasound of left leg is normal. told can use compression stockings for edema as need and should otherwise follow up with primary. Patient understands agrees with plan. - Diagnoses Differential Diagnosis/HQI/PQRI: Positive: Contusion, DVT, Fracture (Closed), Sprain Provider Diagnoses: Injury of knee Discharge - Sign-Out/Discharge Documenting (check all that apply): Patient Departure Patient Received Moderate/Deep Sedation with Procedure: No - Discharge Plan Condition: Good Disposition: HOME Patient Education Materials: Knee Pain (ED) Referrals: Magalys Angulo MD [Medical Doctor] - Additional Instructions: Stay off knee as much as possible Ice, elevate, Ibuprofen or Tylenol every 6 hours for pain keep abrasion clean with soap and water twice a day, apply bactrician Follow up with ortho if no improvement Return to ED if develop or any new or worsening symptoms - Billing Disposition and Condition Condition: GOOD Disposition: Home
[2018-08-26] MEDS ORDERED: Bacitracin OINTMENT* 0.5% 0.5 oz TUBE TOPICAL ONE (19:41)
[2018-08-26 20:04] VITALS: BP 153/97
== END 2018-08-26 20:03 | disposition home or self-care (01) ==
LOC: ED 17:16
DX: S89.92XA Unspecified injury of left lower leg, initial encounter (principal); S89.91XA Unspecified injury of right lower leg, initial encounter; S80.211A Abrasion, right knee, initial encounter; R60.0 Localized edema; W18.30XA Fall on same level, unspecified, initial encounter; Y93.01 Activity, walking, marching and hiking; Y92.9 Unspecified place or not applicable; E11.9 Type 2 diabetes mellitus without complications; J44.9 Chronic obstructive pulmonary disease, unspecified; G40.909 Epilepsy, unspecified, not intractable, without status epilepticus; G43.909 Migraine, unspecified, not intractable, without status migrainosus; Z88.1 Allergy status to other antibiotic agents; Z88.0 Allergy status to penicillin; Z87.891 Personal history of nicotine dependence
CPT/HCPCS: 99282; A9270-GY